=== PATIENT | female | born 1965 | race Caucasian/White ===

== ENCOUNTER 2018-03-14 09:39 | Inpatient (IN) ==
[2018-03-14] MEDS ORDERED: Isovue-370 500 ML INFUS..BTL IV ONE (09:59)
--- NOTE | 2018-03-14 10:30 | Emergency Department Note ---
Disposition Clinical Impression: Pneumonia, Mass of right lung Disposition: Admitted As Inpatient Condition: Fair General Adult HPI - General Chief complaint: ED Shortness of Breath/Dyspnea Stated complaint: "coughing up blood" Time Seen by Provider: 03/14/18 09:49 Source: patient Limitations: no limitations Nursing Notes Reviewed: Yes Vital Signs Reviewed: Yes - History of Present Illness HPI Narrative: 53 year old female with a history of lung cancer, partial lung removed and COPD presents with hemoptysis. Pt stated that she started to cough up bright red blood since yesterday. Around 4 times per hour. Associate with mild shortness of breath. No chest pain. No chill and fever. The symptoms were getting a little bit better today. Patient visited her pulmonology this morning. she was suggested to come to ER for further evaluation. Pt also mention some weight loss since December this year. Pt's last time chest CT was on December this year. Pt follows up with Oncology Dr. Muriel Jimenez and Pulmonology Dr. Atkins. Onset (ago): day(s) (1) Location: other (lungs) Radiation: non-radiation Pain Scale: 0 Consistency: intermittent Improves with: nothing Worsens with: nothing - Related Data Home Medications Medication Instructions Recorded Confirmed Gabapentin [Neurontin] 300 mg PO TID PRN 11/25/15 03/14/18 Cholecalciferol (D-3) [Vitamin D] 1,000 unit PO DAILY 06/02/16 03/14/18 Ibuprofen [Motrin] 200 mg PO Q6HR PRN 06/02/16 03/14/18 Oxygen 2 l .ROUTE AD PRN 06/02/16 03/14/18 Calcium Carbonate/Vitamin D3 1 each PO DAILY 12/26/17 03/14/18 [Calcium 600 + Vit D Tablet] Fluticasone/Vilanterol [Breo 1 each IH DAILY 12/26/17 03/14/18 Ellipta 100-25 Mcg INH] Loratadine/Pseudoephedrine 1 each PO BID 02/07/18 03/14/18 [Allergy-Congestion Rlf-D 12Hr] Meloxicam [Mobic] 15 mg PO DAILY 02/07/18 03/14/18 Citalopram Hydrobromide 10 mg PO DAILY 03/14/18 03/14/18 [Citalopram HBr] clonazePAM [Klonopin] 0.5 mg PO BID 03/14/18 03/14/18 Previous Rx's Medication Instructions Recorded Albuterol Sulfate [Albuterol 1 puff IH Q6HR PRN #1 inhaler 03/05/16 Inhaler] Allergies Allergy/AdvReac Type Severity Reaction Status Date / Time adhesive tape Allergy Hives Verified 02/07/18 14:04 metronidazole [From Flagyl] AdvReac Gastrointestinal Verified 02/07/18 14:04 Upset steriods Allergy Fainting Uncoded 02/07/18 14:04 Constitutional: Denies: fever, chills, weakness, weight change Eyes: Denies: eye pain, eye discharge, vision change ENT ED: Denies: ear pain, throat pain, dental pain, hearing loss, epistaxis, congestion, dysphagia Cardiovascular: Denies: chest pain, palpitations, dyspnea on exertion, edema, syncope Respiratory: Reports: hemoptysis. Denies: cough, dyspnea, wheezes, stridor Gastrointestinal: Denies: abdominal pain, nausea, vomiting, diarrhea, constipation, hematemesis, melena, hematochezia Genitourinary: Denies: dysuria, frequency, hematuria, discharge Musculoskeletal: Denies: back pain, neck pain, arthralgia, myalgia Integumentary: Denies: rash, abrasion, lesions Neurological: Denies: headache, weakness, numbness, paresthesias, confusion, abnormal gait, vertigo Psychiatric: Denies: anxiety, depression, suicidal thoughts, homicidal thoughts , auditory hallucinations, visual hallucinations Endocrine: Denies: fatigue Hematological/Lymphatic: Denies: easy bleeding, easy bruising Allergic/Immunologic: Denies: facial swelling, urticaria Past Medical History - Past Medical History Medical history: Reports: cancer, COPD Surgical history: Reports: hysterectomy Psychiatric history: Reports: anxiety - Social History Smoking Status: Current every day smoker Smokeless Tobacco Status: No Alcohol use: Reports: none Drug use: Reports: none Physical Exam - General Limitations: no limitations General appearance: alert, in no apparent distress - Head Head exam: atraumatic, normocephalic, normal inspection - Eye Eye exam: Present: normal appearance, PERRL, EOMI - ENT ENT exam: normal exam, normal oropharynx, mucous membranes moist - Expanded ENT Exam External ear exam: Present: normal external inspection Mouth exam: Present: normal external inspection Teeth exam: Present: normal inspection Throat exam: Present: normal inspection - Neck Neck exam: Present: normal inspection, full ROM, trachea midline - Chest Chest inspection: Present: normal inspection, symmetric chest wall rise - Respiratory Respiratory exam: Present: normal lung sounds bilaterally - Cardiovascular Cardiovascular exam: Present: regular rate, normal rhythm, normal heart sounds - Abdominal Exam Abdominal exam: Present: soft, Non-Tender. Absent: tenderness, distention, guarding, rebound, rigidity - Extremities Exam Extremities exam: Present: normal inspection, full ROM. Absent: tenderness, pedal edema - Expanded Upper Extremity Exam Shoulder exam: Present: normal inspection, full ROM Arm exam: Present: normal inspection, full ROM Elbow exam: Present: normal inspection, full ROM Forearm/Wrist exam: Present: normal inspection, full ROM Hand exam: Present: normal inspection, full ROM Vascular exam: Normal: capillary refill, radial pulse - Expanded Lower Extremity Exam Hip/Pelvis exam: Present: normal inspection, full ROM Upper leg exam: Present: normal inspection, full ROM Knee exam: Present: normal inspection, full ROM Lower leg exam: Present: normal inspection, full ROM Ankle exam: Present: normal inspection, full ROM Foot/toe exam: Present: normal inspection, full ROM Neurovascular/Tendon exam: Absent: motor deficit, sensory deficit, tendon deficit - Back Exam Back exam: Present: normal inspection, full ROM. Absent: tenderness - Neurological Exam Neurological exam: Present: alert, oriented X3 - Expanded Neurological Exam Patient oriented to: Present: person, place, time Coma Scale Eye Opening: Spontaneous Coma Scale Motor Response: Obeys Commands Coma Scale Verbal Response: Oriented Coma Scale Total: 15 - Psychiatric Psychiatric exam: Present: normal affect, normal mood - Skin Skin exam: Present: warm, dry, intact, normal color Course Vital Signs Temperature 97.6 F 03/14/18 09:42 Pulse Rate 83 03/14/18 09:42 Respiratory Rate 18 03/14/18 09:42 Blood Pressure 117/81 03/14/18 09:42 O2 Sat by Pulse Oximetry 96 03/14/18 09:42 Temperature 97.9 F 03/15/18 07:19 Pulse Rate 71 03/15/18 07:19 Respiratory Rate 17 03/15/18 07:19 Blood Pressure 102/67 03/15/18 07:19 O2 Sat by Pulse Oximetry 98 03/15/18 07:19 Oxygen Delivery Oxygen Delivery Nasal Cannula Medical Decision Making - MDM Narrative Medical decision making narrative: 53-year-old female with history of lung cancer and COPD presents with hemoptysis. Patient reported a cough of multiple times since yesterday. Associated with mild shortness of breath. Patient visited her pulmonology this morning, she was suggested to come to ER. Patient mentioned weight loss since December. Patient denied productive cough, chills and fever. 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 Unremarkable physical exam. Labs: normal hemoglobin. Chest CT: Progressive consolidation of right upper lung, suspicious pneumonia or TB. Dr. Meek saw the patient as well, start Droplet precaution and negative room air immediately, Dr. Atkins consulted suggested start IV antibiotics Rocephine and Azithromycin, sputum culture for TB, hold TB treatment until labs confirmed , he will see the patient in the floor. 01:30 pm, paged hospitalist for admission. 2;30pm, spoke with hospitalist in ER, will admit pt to hospital. - Lab Data Lab results reviewed: Yes I reviewed the patient's lab results. Result diagrams: 03/15/18 01:07 03/15/18 01:07 Lab Results 03/14/18 03/14/18 Range/Units 10:11 10:11 WBC 6.9 (4.3-11.1) K/mcL RBC 3.83 (3.82-4.97) M/mcL Hgb 12.4 (11.5-15.4) g/dL Hct 36.9 (35.3-44.9) % MCV 96.3 (83.0-100.0) fL MCH 32.4 (28.0-33.3) pg MCHC 33.6 (31.6-35.5) g/dL RDW 12.4 (11.5-14.5) % Plt Count 423 H (140-400) K/mcL MPV 9.2 L (9.4-12.4) fL Immature Gran % 0.1 (0-4) % Seg Neutrophils % 60.0 % Lymphocytes % 29.5 % Monocytes % 8.9 % Eosinophils % 0.9 % Basophils % 0.6 % Neutrophils # 4.1 (1.6-8.9) K/mcL Lymphocytes # 2.0 (0.6-4.6) K/mcL Monocytes # 0.6 (0.0-1.3) K/mcL Eosinophils # 0.1 (0.0-0.6) K/mcL Basophils # 0.0 (0.0-0.2) K/mcL Nucleated RBCs/100 WBC 0.3 H (0) /100 WBC Sodium 140 (136-145) mEq/L Potassium 4.0 (3.5-5.1) mEq/L Chloride 103 (98-107) mEq/L Carbon Dioxide 26 (23-29) mEq/L BUN 11 (6-20) mg/dL Creatinine 0.66 (0.60-1.20) mg/dL Est GFR ( Amer) > 60 (> 60) Est GFR (Non-Af Amer) > 60 (> 60) BUN/Creatinine Ratio 17 (6-26) Glucose 97 (70-105) mg/dL Calculated Osmolality 289 (280-300) Calcium 10.1 (8.6-10.3) mg/dL Total Bilirubin 0.3 (0.3-1.0) mg/dL AST 13 (13-39) Units/L ALT 9 (7-52) Units/L Alkaline Phosphatase 81 (34-104) Units/L Serum Total Protein 7.3 (6.4-8.9) g/dL Albumin 4.1 (3.5-5.7) g/dL Globulin 3.2 (2.4-3.5) g/dL Albumin/Globulin Ratio 1.3 (1.1-2.2) - Radiology Data Radiology results reviewed: Yes I reviewed the patient's radiology results. ECHNIQUE: CT of the chest was performed with the administration of intravenous contrast. Multiplanar reformatted images are provided for review. Dose modulation, iterative reconstruction, and/or weight based adjustment of the mA/kV was utilized to reduce the radiation dose to as low as reasonably achievable. COMPARISON: Multiple prior exams, most recently PA chest CT from 01/09/2018 HISTORY: ORDERING SYSTEM PROVIDED HISTORY: hemoptysis, history of lung cancer 75 ml of [id number] FINDINGS: Mediastinum: No enlarged lymph nodes. Right hilar surgical clips. Normal caliber great vessels. Normal heart size with mild RCA territory coronary calcifications. No pericardial effusion. Unremarkable esophagus. Lungs/pleura: Postsurgical changes right upper and middle lobectomies. Architectural distortion at the right lung apex with progressive consolidation and cavitary appearing areas largest, a bilobed appearing area best appreciated on coronal image 90 measuring 4.4 x 1.3 cm and coronal plane. Mild diffuse bronchial wall thickening. Unchanged background of centrilobular and paraseptal emphysema. Mild reticular versus ground-glass abnormality along the posterior right costophrenic sulcus. Small amount of left basilar atelectasis. Upper Abdomen: Unremarkable. Soft Tissues/Bones: No enlarged axillary or supraclavicular lymph nodes. Normal thyroid. CT/CT chest w con IMPRESSION: Postsurgical changes of prior right upper and middle lobectomies. Progressive consolidation at the right lung apex, with questionable areas of cavitation and/or cicatricial bronchiectasis. Together, these findings are suspicious for superimposed infectious process such as pneumonia. TB should also be considered until excluded. Residual malignancy/disease recurrence cannot be excluded. Recommend follow-up contrast-enhanced CT chest in 8-12 weeks. Moderate centrilobular and paraseptal emphysema. Critical results were called by Dr. Matt King to Sam Hightower NP on 03/14/2018 at 13:13. D/ / Matt King / Matt King Attestation Statement - Attestation Attestation: John, Rohan Meek DO have provided [id number] time during the care of this patient. Detailed review the presentation, symptoms, medical history were discussed and reviewed with the mid-level provider Sam Hightower PA-C/MARKETING COMMUNICATIONS MANAGER. Medical intervention labs and imaging studies were reviewed in detail. See full documentation of physical exam and course of care in the mid-level provider's note. I agree with the determined course of care, medical intervention and disposition put forth by the mid-level provider. See below documentation for changes or alterations in documentation.
[2018-03-14 10:43] LABS: Basophils % 0.6 %; Eosinophils # 0.1 K/mcL (0.0-0.6); Eosinophils % 0.9 %; Hematocrit 36.9 % (35.3-44.9); Hemoglobin 12.4 g/dL (11.5-15.4); Immature Granulocytes % 0.1 % (0-4); Lymphocytes % 29.5 %; Mean Corpuscular HGB Conc 33.6 g/dL (31.6-35.5); Mean Corpuscular Hemoglobin 32.4 pg (28.0-33.3); Mean Corpuscular Volume 96.3 fL (83.0-100.0); Mean Platelet Volume 9.2 fL (9.4-12.4); Monocytes # 0.6 K/mcL (0.0-1.3); Monocytes % 8.9 %; Neutrophils # 4.1 K/mcL (1.6-8.9); Nucleated Red Blood Cells 0.3 /100 WBC (0); Platelet Count 423 K/mcL (140-400); Red Blood Count 3.83 M/mcL (3.82-4.97); Red Cell Distribution Width 12.4 % (11.5-14.5)
[2018-03-14 11:34] LABS: Alanine Aminotransferase 9 Units/L (7-52); Albumin 4.1 g/dL (3.5-5.7); Albumin/Globulin Ratio 1.3 (1.1-2.2); Alkaline Phosphatase 81 Units/L (34-104); Aspartate Amino Transferase 13 Units/L (13-39); BUN/Creatinine Ratio 17 (6-26); Bilirubin,Total 0.3 mg/dL (0.3-1.0); Blood Urea Nitrogen 11 mg/dL (6-20); Calcium 10.1 mg/dL (8.6-10.3); Carbon Dioxide 26 mEq/L (23-29); Chloride 103 mEq/L (98-107); Globulin 3.2 g/dL (2.4-3.5); Glucose 97 mg/dL (70-105); Osmolality,Calculated 289 (280-300); Sodium 140 mEq/L (136-145); Total Protein 7.3 g/dL (6.4-8.9); eGFR For African Americans > 60 (> 60); eGFR For Non-African Americans > 60 (> 60)
[2018-03-14] MEDS ORDERED: cefTRIAXone 2,000 MG in 0.9 % Sodium Chloride Mini Bag 100 ML IVPB ONE (13:25)
[2018-03-14] MEDS ORDERED: Azithromycin 500 MG in D5% in Water 250 ML IVPB ONE (13:25)
--- NOTE | 2018-03-14 13:36 | Emergency Department Note ---
Disposition Clinical Impression: Pneumonia, Mass of right lung Disposition: Admitted As Inpatient Condition: Fair Time of Disposition: 15:24 General Adult HPI - General Chief complaint: ED Shortness of Breath/Dyspnea Stated complaint: "coughing up blood" Time Seen by Provider: 03/14/18 09:49 Source: patient Limitations: no limitations - History of Present Illness Location: other (lungs) Pain Scale: 0 Improves with: nothing Worsens with: nothing - Related Data Home Medications Medication Instructions Recorded Confirmed Gabapentin [Neurontin] 300 mg PO TID PRN 11/25/15 03/14/18 Cholecalciferol (D-3) [Vitamin D] 1,000 unit PO DAILY 06/02/16 03/14/18 Ibuprofen [Motrin] 200 mg PO Q6HR PRN 06/02/16 03/14/18 Oxygen 2 l .ROUTE AD PRN 06/02/16 03/14/18 Calcium Carbonate/Vitamin D3 1 each PO DAILY 12/26/17 03/14/18 [Calcium 600 + Vit D Tablet] Fluticasone/Vilanterol [Breo 1 each IH DAILY 12/26/17 03/14/18 Ellipta 100-25 Mcg INH] Loratadine/Pseudoephedrine 1 each PO BID 02/07/18 03/14/18 [Allergy-Congestion Rlf-D 12Hr] Meloxicam [Mobic] 15 mg PO DAILY 02/07/18 03/14/18 Citalopram Hydrobromide 10 mg PO DAILY 03/14/18 03/14/18 [Citalopram HBr] clonazePAM [Klonopin] 0.5 mg PO BID 03/14/18 03/14/18 Previous Rx's Medication Instructions Recorded Albuterol Sulfate [Albuterol 1 puff IH Q6HR PRN #1 inhaler 03/05/16 Inhaler] Allergies Allergy/AdvReac Type Severity Reaction Status Date / Time adhesive tape Allergy Hives Verified 02/07/18 14:04 metronidazole [From Flagyl] AdvReac Gastrointestinal Verified 02/07/18 14:04 Upset steriods Allergy Fainting Uncoded 02/07/18 14:04 Constitutional: Denies: fever, chills, weakness, weight change Eyes: Denies: eye pain, eye discharge, vision change ENT ED: Denies: ear pain, throat pain, dental pain, hearing loss, epistaxis, congestion, dysphagia Cardiovascular: Denies: chest pain, palpitations, dyspnea on exertion, edema, syncope Respiratory: Reports: hemoptysis. Denies: cough, dyspnea, wheezes, stridor Gastrointestinal: Denies: abdominal pain, nausea, vomiting, diarrhea, constipation, hematemesis, melena, hematochezia Genitourinary: Denies: dysuria, frequency, hematuria, discharge Musculoskeletal: Denies: back pain, neck pain, arthralgia, myalgia Integumentary: Denies: rash, abrasion, lesions Neurological: Denies: headache, weakness, numbness, paresthesias, confusion, abnormal gait, vertigo Psychiatric: Denies: anxiety, depression, suicidal thoughts, homicidal thoughts , auditory hallucinations, visual hallucinations Endocrine: Denies: fatigue Hematological/Lymphatic: Denies: easy bleeding, easy bruising Allergic/Immunologic: Denies: facial swelling, urticaria Past Medical History - Past Medical History Medical history: Reports: cancer, COPD Surgical history: Reports: hysterectomy Psychiatric history: Reports: anxiety - Social History Smoking Status: Current every day smoker Smokeless Tobacco Status: No Alcohol use: Reports: none Drug use: Reports: none Physical Exam - General Limitations: no limitations General appearance: alert, in no apparent distress Course Vital Signs Temperature 97.6 F 03/14/18 09:42 Pulse Rate 83 03/14/18 09:42 Respiratory Rate 18 03/14/18 09:42 Blood Pressure 117/81 03/14/18 09:42 O2 Sat by Pulse Oximetry 96 03/14/18 09:42 Temperature 97.6 F 03/14/18 09:50 Pulse Rate 75 03/14/18 12:53 Respiratory Rate 16 03/14/18 12:53 Blood Pressure 125/85 03/14/18 12:53 O2 Sat by Pulse Oximetry 94 03/14/18 12:53 Oxygen Delivery Oxygen Delivery Nasal Cannula Medical Decision Making - Lab Data Result diagrams: 03/14/18 10:11 03/14/18 10:11 Lab Results 03/14/18 03/14/18 Range/Units 10:11 10:11 WBC 6.9 (4.3-11.1) K/mcL RBC 3.83 (3.82-4.97) M/mcL Hgb 12.4 (11.5-15.4) g/dL Hct 36.9 (35.3-44.9) % MCV 96.3 (83.0-100.0) fL MCH 32.4 (28.0-33.3) pg MCHC 33.6 (31.6-35.5) g/dL RDW 12.4 (11.5-14.5) % Plt Count 423 H (140-400) K/mcL MPV 9.2 L (9.4-12.4) fL Immature Gran % 0.1 (0-4) % Seg Neutrophils % 60.0 % Lymphocytes % 29.5 % Monocytes % 8.9 % Eosinophils % 0.9 % Basophils % 0.6 % Neutrophils # 4.1 (1.6-8.9) K/mcL Lymphocytes # 2.0 (0.6-4.6) K/mcL Monocytes # 0.6 (0.0-1.3) K/mcL Eosinophils # 0.1 (0.0-0.6) K/mcL Basophils # 0.0 (0.0-0.2) K/mcL Nucleated RBCs/100 WBC 0.3 H (0) /100 WBC Sodium 140 (136-145) mEq/L Potassium 4.0 (3.5-5.1) mEq/L Chloride 103 (98-107) mEq/L Carbon Dioxide 26 (23-29) mEq/L BUN 11 (6-20) mg/dL Creatinine 0.66 (0.60-1.20) mg/dL Est GFR ( Amer) > 60 (> 60) Est GFR (Non-Af Amer) > 60 (> 60) BUN/Creatinine Ratio 17 (6-26) Glucose 97 (70-105) mg/dL Calculated Osmolality 289 (280-300) Calcium 10.1 (8.6-10.3) mg/dL Total Bilirubin 0.3 (0.3-1.0) mg/dL AST 13 (13-39) Units/L ALT 9 (7-52) Units/L Alkaline Phosphatase 81 (34-104) Units/L Serum Total Protein 7.3 (6.4-8.9) g/dL Albumin 4.1 (3.5-5.7) g/dL Globulin 3.2 (2.4-3.5) g/dL Albumin/Globulin Ratio 1.3 (1.1-2.2) Attestation Statement - Attestation Attestation: I, Rohan Meek DO have provided [id number] time during the care of this patient. Detailed review the presentation, symptoms, medical history were discussed and reviewed with the mid-level provider Sam Hightower PA-C/RAILROAD TRACK MECHANIC. Medical intervention labs and imaging studies were reviewed in detail. See full documentation of physical exam and course of care in the mid-level provider's note. I agree with the determined course of care, medical intervention and disposition put forth by the mid-level provider. See below documentation for changes or alterations in documentation. 53-year-old female presents to the emergency room at the request of her theater projectionist. Patient was seen by the mid-level provider 3 hours and 30 minutes prior to my involvement in the case. Patient was sent because of hemoptysis. Patient had this going on and off for the last several days. She does have a history of cancer, lobectomy and treatment of the right upper lung. Patient denies any fevers or chills nausea vomiting or diarrhea. Denies any headache or vision change. She has had shortness of breath. She denies any chest pain. Laboratory workup is completed. No acute findings noted at that time. CT of the chest was ordered with IV contrast the patient is found to have what appears to be possible cavitary lesions in the upper aspect along with scarring and possible pneumonia. There was concern for possible tuberculosis versus empyema versus pneumonia. Because of this the patient be put in contact precautions up with negative pressure room at this time. The theater projectionist will be contacted for their recommendations patient will be admitted. Patient otherwise currently stable. Blood cultures will be added on at this point and fluids will be started. See detailed documentation of physical exam, medical intervention, medical decision-making and disposition the mid-level provider's note [id number] Patient is otherwise stable. Hospitalist as well as the theater projectionist were contacted. Recommendations of the mid-level provider's note. Patient will be admitted for definitive management. Antibiotics ordered at this time. No critical care provider the patient's treatment course
--- NOTE | 2018-03-14 14:41 | Pulmonology History & Physical ---
Date of Encounter: 03/14/18 Time of Encounter: 14:37 History of Present Illness Chief complaint: Hemoptysis Past Med Surg Social Fam HX - Past Medical History Medical history: cancer, COPD Psychiatric history: anxiety - Past Surgical History Surgical History: hysterectomy - Social History Smoking Status: Current every day smoker Smokeless Tobacco Status: No Alcohol use: none Drug use: none - Family History Mother Adopted: No Hx Family Neurologic Disorders: Yes (stroke) Medications and Allergies Gabapentin [Neurontin] 300 mg PO TID PRN 11/25/15 [History] Albuterol Sulfate [Albuterol Inhaler] 1 puff IH Q6HR PRN #1 inhaler 03/05/16 [Rx ] Cholecalciferol (D-3) [Vitamin D] 1,000 unit PO DAILY 06/02/16 [History] Ibuprofen [Motrin] 200 mg PO Q6HR PRN 06/02/16 [History] Oxygen 2 l .ROUTE AD PRN 06/02/16 [History] Calcium Carbonate/Vitamin D3 [Calcium 600 + Vit D Tablet] 1 each PO DAILY [History] Fluticasone/Vilanterol [Breo Ellipta 100-25 Mcg INH] 1 each IH DAILY 12/26/17 [ History] Loratadine/Pseudoephedrine [Allergy-Congestion Rlf-D 12Hr] 1 each PO BID [History] Meloxicam [Mobic] 15 mg PO DAILY 02/07/18 [History] Citalopram Hydrobromide [Citalopram HBr] 10 mg PO DAILY 03/14/18 [History] clonazePAM [Klonopin] 0.5 mg PO BID 03/14/18 [History] 3 Allergy/AdvReac Type Severity Reaction Status Date / Time adhesive tape Allergy Hives Verified 02/07/18 14:04 metronidazole [From Flagyl] AdvReac Gastrointestinal Verified 02/07/18 14:04 Upset steriods Allergy Fainting Uncoded 02/07/18 14:04 All Systems: The remainder of the systems were reviewed and are negative Physical Examination Vital Signs: Vital Signs, Last 4 Hours Pulse Resp BP Pulse Ox 03/14/18 12:53 75 16 125/85 94 03/14/18 11:11 82 18 125/82 94 Results - Laboratory Findings CBC and BMP: 03/14/18 10:11 03/14/18 10:11 Abnormal lab findings: Abnormal lab results Plt Count 423 K/mcL (140-400) H 03/14/18 10:11 MPV 9.2 fL (9.4-12.4) L 03/14/18 10:11 Nucleated RBCs/100 WBC 0.3 /100 WBC (0) H 03/14/18 10:11
--- NOTE | 2018-03-14 14:59 | Pulmonology Consult Note ---
<Cecy Kerns - Last Filed: 03/14/18 15:46> Date of Encounter: 03/14/18 Time of Encounter: 14:35 Assessment and Plan (1) Hemoptysis Current Visit: Yes Status: Acute Mild hemoptysis with differential of malignancy, TB, aspergillosis, bronchiectasis. Mild hemoptysis since yesterday, 4x per day but decreased today. Admitted night sweats for 2 weeks, cough, headache. PMH of non-small cell lung cancer with right upper and lower lobectomies in 2013 , COPD WBC and Hgb WNL, afebrile CT chest demonstrating progressive consolidation of right lung with apex cavitation and or cictricial bronchiectasis. Suspicious for superimposed infection such as pneumonia and TB. Moderate centrilobular and paraseptal emphysema. No recent travel, TB exposure Plan -consult infectious disease due to concern for possible TB. Per infectious disease no antibiotics since the patient has a normal WBC and not septic -AFB sputum x3 q8h -AFB culture pending -sputum culture pending -airborne precautions -PPD test pending (2) Mass of right lung Current Visit: Yes Status: Acute Concern for malignancy. Has a history of non-small cell lung cancer in her right lung with right upper and lower lobectomies CT chest demonstrating progressive consolidation of right lung with apex cavitation and or cictricial bronchiectasis. Suspicious for superimposed infection such as pneumonia and TB. Moderate centrilobular and paraseptal emphysema. Bronchoscopy 05/2016: negative for malignant cells Plan -will go forward with bronchoscopy after 2 consecutive negative AFB -AFB pending (3) COPD (chronic obstructive pulmonary disease) Current Visit: Yes Status: Acute History of known COPD controlled with Breo and albuterol. She is a patient of Dr. Atkins of pulmonology. This is unlikely to be exacerbation right now. -Continue Symbicort -continue albuterol Qualifiers: Qualified Code(s): J44.9 - Chronic obstructive pulmonary disease, unspecified (4) Non-small cell cancer of right lung Current Visit: No Status: Resolved non-small cell lung cancer with right upper and lower lobectomies in 2013 (5) Tobacco abuse Current Visit: Yes Status: Acute The patient has been smoking since she was 12 years old and currently smokes 1/ 2 ppd. (6) Tobacco abuse counseling Current Visit: Yes Status: Acute The patient was counseled on smoking cessation and stated in understanding however, she declined at this time. History of Present Illness Consult date: 03/14/18 Requesting physician: Sam Hightower Reason for consult: other (Hemoptysis) Chief complaint: Hemoptysis History of present illness: 53yo female PMH lung cancer 14 years ago with right upper and lower lobe lobectomies, COPD who presented to [facility] complaining of hemoptysis since yesterday. She was seen in her atm technician office today and was immediately recommended to get the ED. She reported the hemoptysis yesterday was 4 times an hour and today it has decreased in frequency. She also had shortness of breath yesterday requiring her AZALEA inhaler and cough. She has had a "cold" for 2 weeks with runny nose, headache, night sweats. She is also noted 40 pound weight loss in the past 2.5 years. She denies fever, chills, chest pain, abdominal pain, nausea, hematemesis, melena, hematechezia. She denies recent travel, TB exposure, hospitalizations. She admits to smoking since 13 years old and currently smokes 1/2 ppd. She is a full code. Past Med Surg Social Fam HX - Past Medical History Medical history: cancer, COPD Psychiatric history: anxiety - Past Surgical History Surgical History: hysterectomy - Social History Smoking Status: Current every day smoker Smokeless Tobacco Status: No Alcohol use: none Drug use: none - Family History Mother Adopted: No Hx Family Neurologic Disorders: Yes (stroke) Medications and Allergies Gabapentin [Neurontin] 300 mg PO TID PRN 11/25/15 [History] Albuterol Sulfate [Albuterol Inhaler] 1 puff IH Q6HR PRN #1 inhaler 03/05/16 [Rx ] Cholecalciferol (D-3) [Vitamin D] 1,000 unit PO DAILY 06/02/16 [History] Ibuprofen [Motrin] 200 mg PO Q6HR PRN 06/02/16 [History] Oxygen 2 l .ROUTE AD PRN 06/02/16 [History] Calcium Carbonate/Vitamin D3 [Calcium 600 + Vit D Tablet] 1 each PO DAILY [History] Fluticasone/Vilanterol [Breo Ellipta 100-25 Mcg INH] 1 each IH DAILY 12/26/17 [ History] Loratadine/Pseudoephedrine [Allergy-Congestion Rlf-D 12Hr] 1 each PO BID [History] Meloxicam [Mobic] 15 mg PO DAILY 02/07/18 [History] Citalopram Hydrobromide [Citalopram HBr] 10 mg PO DAILY 03/14/18 [History] clonazePAM [Klonopin] 0.5 mg PO BID 03/14/18 [History] 3 Allergy/AdvReac Type Severity Reaction Status Date / Time adhesive tape Allergy Hives Verified 02/07/18 14:04 metronidazole [From Flagyl] AdvReac Gastrointestinal Verified 02/07/18 14:04 Upset steriods Allergy Fainting Uncoded 02/07/18 14:04 All Systems: The remainder of the systems were reviewed and are negative - Constitutional Constitutional: weight loss (40 pounds in 2.5 years), no chills, no fever(s) - EENT Eyes: no loss of vision Nose, mouth and throat: headache(s), nasal discharge, no epistaxis, no sore throat - Cardiovascular Cardiovascular: no chest pain, no diaphoresis, no edema, no palpitations, no syncope - Respiratory Respiratory: cough, dyspnea, hemoptysis - Gastrointestinal Gastrointestinal: no abdominal pain, no diarrhea, no hematemesis, no hematochezia, no melena, no nausea - Musculoskeletal Musculoskeletal: myalgias - Integumentary Integumentary: no erythema - Endocrine Endocrine: cold intolerance Physical Examination Vital Signs: Vital Signs, Last 4 Hours Pulse Resp BP Pulse Ox 03/14/18 12:53 75 16 125/85 94 03/14/18 11:11 82 18 125/82 94 General appearance: no acute distress, alert Eyes: nonicteric ENT: oropharynx moist Mallampati (class): 1 Neck: supple Effort: normal Inspection: normal Auscultation: bilateral: other (Crackles left lower lobe) Percussion: right: dull, bilateral: not dull Tactile fremitus: right: diminished, bilateral: normal Cardiovascular: regular rate and rhythm Gastrointestinal: normoactive bowel sounds, soft, non-tender Integumentary: normal Musculoskeletal: no deformities normal mental status, non-focal exam mood appropriate, affect normal Results - Laboratory Findings CBC and BMP: 03/14/18 10:11 03/14/18 10:11 Abnormal lab findings: Abnormal lab results Plt Count 423 K/mcL (140-400) H 03/14/18 10:11 MPV 9.2 fL (9.4-12.4) L 03/14/18 10:11 Nucleated RBCs/100 WBC 0.3 /100 WBC (0) H 03/14/18 10:11 - Clinical Findings Intake & Output: Intake & Output 03/13/18 03/14/18 03/14/18 23:59 07:59 15:59 Intake Total 100 / 100 Balance 100 / 100 Weight 59.874 kg Consult Discharge Plan - Plan Referrals: Herlinda Espinal MD [Primary Care Provider] - <Lilia Atkins - Last Filed: 03/14/18 16:38> Date of Encounter: 03/14/18 All Systems: The remainder of the systems were reviewed and are negative Physical Examination Vital Signs: Vital Signs, Last 4 Hours Temp Pulse Resp BP Pulse Ox 03/14/18 16:19 98.0 F 70 19 107/73 97 03/14/18 15:58 16 129/82 Results - Laboratory Findings CBC and BMP: 03/14/18 10:11 03/14/18 10:11 Abnormal lab findings: Abnormal lab results Plt Count 423 K/mcL (140-400) H 03/14/18 10:11 MPV 9.2 fL (9.4-12.4) L 03/14/18 10:11 Nucleated RBCs/100 WBC 0.3 /100 WBC (0) H 03/14/18 10:11 - Clinical Findings Intake & Output: Intake & Output 03/14/18 03/14/18 03/14/18 07:59 15:59 23:59 Intake Total 0 / 0 Output Total 0 / 0 Balance 0 / 0 Weight 59.879 kg - Attending Attestation I examined this patient and my medical decision-making was reviewed with the Resident Physician. I agree with the documented findings, disposition and treatment plan as described except to the extent set forth below. Patient seen and examined. Labs, radiology, chart personally reviewed. 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 Patient has only mild hemoptysis and TB needs to be ruled out before any invasive procedure such as bronchoscopy and sputum AFB smear to be done and if at least 2 negative and continue to have hemoptysis then we will plan for bronchoscopy. I have explained this to the patient and she understand that. I have also reviewed CT chest personally with the resident. Cardiovascular: stable GI: Nutrition per dietary and GI prophylaxis per routine Heme: DVT prophylaxis per routine ID: Infectious disease consultation. Thank you for consultation we will continue follow-up.
[2018-03-14] MEDS ORDERED: Tuberculin Skin Test (PPD) 5 TUB/0.1 ML VIAL ID ONE (15:47)
--- NOTE | 2018-03-14 15:58 | Internal Med History&Physical ---
Date of Encounter: 03/14/18 Time of Encounter: 03:00 Internal Medicine - H&P: HPI Chief complaint: hemoptysis Plans for Post Hospital Care: Transfer Inp Rehab Fac History of present illness: Ms. White is a 53 year old female with PMH lung cancer 14 years ago s/p right upper and lower lobe lobectomies, COPD who presented to [facility] complaining of similar episodes of hemoptysis associated with shortness of breath and cough and was advised by her mechanic field service to immediately seek medical attention at ED. She also c/ 2 weeks history of runny nose, headache and night sweats. She denies recent travel, TB exposure, hospitalizations. She admits to smoking since 13 years old and currently smokes 1/2 ppd. she was evaluated by the ER staff and her labs were unremarkable, however Chest CT revealed Progressive consolidation of right upper lung, suspicious pneumonia or TB. Dr. Atkins consulted suggested start IV antibiotics Rocephine and Azithromycin, sputum culture for TB, hold TB treatment until labs confirmed. The patient was admitted for further evaluation and management Past Med Surg Social Fam HX - Past Medical History Medical history: cancer, COPD Psychiatric history: anxiety - Past Surgical History Surgical History: hysterectomy - Social History Smoking Status: Current every day smoker Smokeless Tobacco Status: No Alcohol use: none Drug use: none - Family History Mother Adopted: No Hx Family Neurologic Disorders: Yes (stroke) Internal Medicine - H&P: Meds Gabapentin [Neurontin] 300 mg PO TID PRN 11/25/15 [History] Albuterol Sulfate [Albuterol Inhaler] 1 puff IH Q6HR PRN #1 inhaler 03/05/16 [Rx ] Cholecalciferol (D-3) [Vitamin D] 1,000 unit PO DAILY 06/02/16 [History] Ibuprofen [Motrin] 200 mg PO Q6HR PRN 06/02/16 [History] Oxygen 2 l .ROUTE AD PRN 06/02/16 [History] Calcium Carbonate/Vitamin D3 [Calcium 600 + Vit D Tablet] 1 each PO DAILY [History] Fluticasone/Vilanterol [Breo Ellipta 100-25 Mcg INH] 1 each IH DAILY 12/26/17 [ History] Loratadine/Pseudoephedrine [Allergy-Congestion Rlf-D 12Hr] 1 each PO BID [History] Meloxicam [Mobic] 15 mg PO DAILY 02/07/18 [History] Citalopram Hydrobromide [Citalopram HBr] 10 mg PO DAILY 03/14/18 [History] clonazePAM [Klonopin] 0.5 mg PO BID 03/14/18 [History] 3 Allergy/AdvReac Type Severity Reaction Status Date / Time adhesive tape Allergy Hives Verified 02/07/18 14:04 metronidazole [From Flagyl] AdvReac Gastrointestinal Verified 02/07/18 14:04 Upset steriods Allergy Fainting Uncoded 02/07/18 14:04 All Systems PM: A 10-system review of systems was performed and is negative for pertinent findings except as documented above in the HPI. - Constitutional Constitutional: anorexia, fatigue, malaise, night sweats, weight loss, no chills , no fever(s) - Cardiovascular Cardiovascular ROS IM: dyspnea, no chest pain, no diaphoresis, no lightheadedness, no palpitations, no syncope - Respiratory Respiratory: cough, dyspnea, hemoptysis, wheezing, no excessive phlegm production - Gastrointestinal Gastrointestinal: no abdominal pain, no diarrhea, no hematemesis, no hematochezia, no melena, no nausea, no vomiting - Neurological Neurological ROS: no confusion, no convulsions, no focal weakness, no numbness, no tingling, no tremor(s) - Constitutional Vitals: Temp Pulse Resp BP Pulse Ox 97.6 F 75 16 125/85 94 03/14/18 09:50 03/14/18 12:53 03/14/18 12:53 03/14/18 12:53 03/14/18 12:53 General appearance: Present: A&O X 3 - Head Head exam: Present: atraumatic, normocephalic - Eye Eye exam: Present: PERRL, conjuntiva pink, sclera anicteric Pupils: Present: PERRL - Neck Neck exam general surgery: Present: supple, trachea midline. Absent: lymphadenopathy - Respiratory Respiratory exam: Present: rhonchi, wheezes. Absent: accessory muscle use, rales - Cardiovascular Cardiovascular exam: Present: RRR, +S1, +S2. Absent: diastolic murmur, gallop, rubs, systolic murmur - GI/Abdominal GI/Abdominal exam: Present: normal bowel sounds, soft, no peritoneal signs. Absent: distended, tenderness - Extremities Exam Extremities exam: Present: warm, radial pulses palpable and symmetrical. Absent : calf tenderness, cyanotic, pedal edema Internal Med - H&P Results - Labs CBC & Chem 7: 03/17/18 03:54 03/17/18 03:54 - Assessment and plan (1) Pneumonia Status: Deleted Assessment and plan: SOB DD *Pneumonia, ?? TB -AFB sputum x3 q8h -AFB culture pending -sputum culture pending -airborne precautions - Blood Cx - Urine Legionella antigen - Antibiotics - CBCD, CMP in AM - Tylenol 650 mg PO q 4-6 hr PRN pain or fever - Home meds - check the list and restart accordingly - Heparin 5000 U SQ BID Qualifiers: Pneumonia type: due to unspecified organism Laterality: unspecified laterality Lung location: unspecified part of lung Qualified Code(s): J18.9 - Pneumonia, unspecified organism (2) Mass of right lung Status: Acute Assessment and plan: the patient has history of lung cancer 14 years ago, report night sweats , hemoptysis and cough as well as weight loss, TB workup is pending, pulmonary was consulted (3) COPD (chronic obstructive pulmonary disease) Status: Acute Assessment and plan: we will continue home medication and start DuoNeb, the patient is still smoking and was counseled about smoking cessation . Qualifiers: COPD type: unspecified COPD Qualified Code(s): J44.9 - Chronic obstructive pulmonary disease, unspecified (4) Hemoptysis Status: Acute (5) Tobacco abuse counseling Status: Acute (6) DVT prophylaxis Status: Acute Assessment and plan: we will discharge the patient SCDs, we will hold on pharmacological anticoagulation for now given hemoptysis - Time Spent With Patient Total time spent is greater than 50% in coordination of care (as documented) at patient's floor/unit and/or counseling patient:
[2018-03-14] MEDS ORDERED: Gabapentin 300 MG CAPSULE PO PRN (18:13)
[2018-03-14] MEDS ORDERED: Acetaminophen 325 MG TABLET PO PRN (18:15)
[2018-03-14] MEDS ORDERED: Naloxone 0.4 MG/ML INJ IVP PRN (18:15)
[2018-03-14 19:32] LABS: Influenza A PCR Negative (Negative); Influenza B PCR Negative (Negative); Resp. Syncytial Virus PCR Negative (Negative)
[2018-03-14] MEDS: clonazePAM 0.5 MG TABLET PO SCH (20:25)
[2018-03-14] MEDS: Loratadine/Pseudophed (12 HR) 1 EACH TABLET PO SCH (20:25)
[2018-03-14] MEDS: 0.9 % Sodium Chloride 1,000 ML IVC SCH (20:26)
[2018-03-15 00:26] LABS: Bilirubin,Urine Negative (Negative); Blood,Urine Negative (Negative); Clarity,Urine Clear (Clear); Color,Urine Yellow (Yellow); Glucose,Urine (UA) Normal (Normal); Ketones,Urine Negative (Negative); Leukocyte Esterase,Urine Negative (Negative); Nitrite,Urine Negative (Negative); Protein,Urine Negative (Neg-Trace); Specific Gravity,Urine 1.023 (1.010-1.025); Urobilinogen,Urine Normal (Normal)
[2018-03-15 01:59] LABS: Alanine Aminotransferase 8 Units/L (7-52); Albumin 3.7 g/dL (3.5-5.7); Albumin/Globulin Ratio 1.3 (1.1-2.2); Alkaline Phosphatase 74 Units/L (34-104); Aspartate Amino Transferase 12 Units/L (13-39); BUN/Creatinine Ratio 19 (6-26); Bilirubin,Total 0.2 mg/dL (0.3-1.0); Blood Urea Nitrogen 12 mg/dL (6-20); Calcium 9.3 mg/dL (8.6-10.3); Carbon Dioxide 28 mEq/L (23-29); Chloride 105 mEq/L (98-107); Chol/HDL Ratio 3.7 (0-4.9); Cholesterol 174 mg/dL (< 200); Globulin 2.9 g/dL (2.4-3.5); Glucose 87 mg/dL (70-105); HDL Cholesterol 47 mg/dL (40-59); LDL Cholesterol,Calculated 110 mg/dL (0-99); Magnesium 2.2 mg/dL (1.6-2.6); Osmolality,Calculated 289 (280-300); Phosphorous 4.7 mg/dL (2.7-4.5); Sodium 140 mEq/L (136-145); Total Protein 6.6 g/dL (6.4-8.9); Triglycerides 84 mg/dL (< 150); eGFR For African Americans > 60 (> 60); eGFR For Non-African Americans > 60 (> 60)
[2018-03-15 02:21] LABS: INR 1.1; Prothrombin Time 11.6 Seconds (9.4-12.1)
[2018-03-15 02:36] LABS: Basophils # 0.1 K/mcL (0.0-0.2); Basophils % 0.9 %; Eosinophils # 0.1 K/mcL (0.0-0.6); Eosinophils % 1.5 %; Hematocrit 36.6 % (35.3-44.9); Immature Granulocytes % 0.3 % (0-4); Lymphocytes # 2.5 K/mcL (0.6-4.6); Lymphocytes % 37.5 %; Mean Corpuscular HGB Conc 32.8 g/dL (31.6-35.5); Mean Corpuscular Hemoglobin 31.8 pg (28.0-33.3); Mean Corpuscular Volume 97.1 fL (83.0-100.0); Mean Platelet Volume 9.4 fL (9.4-12.4); Monocytes # 0.6 K/mcL (0.0-1.3); Monocytes % 9.8 %; Neutrophils # 3.3 K/mcL (1.6-8.9); Platelet Count 438 K/mcL (140-400); Red Blood Count 3.77 M/mcL (3.82-4.97); Red Cell Distribution Width 12.5 % (11.5-14.5)
[2018-03-15] MEDS: 0.9 % Sodium Chloride 1,000 ML IVC SCH (06:33)
[2018-03-15] MEDS: Cholecalciferol (D-3) 1,000 UNIT TABLET PO SCH (08:03)
[2018-03-15] MEDS: Loratadine/Pseudophed (12 HR) 1 EACH TABLET PO SCH ×2 (08:03→21:25)
[2018-03-15] MEDS: clonazePAM 0.5 MG TABLET PO SCH ×2 (08:03→21:25)
[2018-03-15] MEDS ORDERED: Azithromycin 500 MG in D5% in Water 250 ML IVPB SCH ×2 (09:00→16:00)
[2018-03-15] MEDS ORDERED: (Fluticasone/Vilanterol [Breo Ellipta 100-25 Mcg Inh]) IH SCH (09:00)
[2018-03-15] MEDS ORDERED: cefTRIAXone 1,000 MG in Water for inj. (sterile) 20 ML 10 ML IVP SCH ×2 (09:00)
--- NOTE | 2018-03-15 09:03 | Pulmonology Progress Note ---
<Cecy Kerns - Last Filed: 03/15/18 10:36> Date of Encounter: 03/15/18 Time of Encounter: 09:02 Assessment and Plan (1) Hemoptysis Current Visit: Yes Status: Acute Mild hemoptysis with differential of malignancy, TB, aspergillosis, bronchiectasis. Mild hemoptysis since yesterday, 4x per day but decreased today. Admitted night sweats for 2 weeks, cough, headache. No recent travel, TB exposure PMH of non-small cell lung cancer with right upper and lower lobectomies in 2013 , COPD WBC and Hgb WNL, afebrile CT chest demonstrating progressive consolidation of right lung with apex cavitation and or cictricial bronchiectasis. Suspicious for superimposed infection such as pneumonia and TB. Moderate centrilobular and paraseptal emphysema. -she has had 2 episodes of hemoptysis today with teaspoon amount -sputum culture negative Plan -consult infectious disease due to concern for possible TB. Per infectious disease no antibiotics since the patient has a normal WBC and not septic -AFB sputum x3 q8h pending -AFB culture pending -airborne precautions -PPD test pending (2) Mass of right lung Current Visit: Yes Status: Acute Concern for malignancy. Has a history of non-small cell lung cancer in her right lung with right upper and lower lobectomies CT chest demonstrating progressive consolidation of right lung with apex cavitation and or cictricial bronchiectasis. Suspicious for superimposed infection such as pneumonia and TB. Moderate centrilobular and paraseptal emphysema. Bronchoscopy 05/2016: negative for malignant cells Plan -will go forward with bronchoscopy after 2 consecutive negative AFB -AFB pending, called lab and they stated that results should be available in 2 to 3 hours (3) COPD (chronic obstructive pulmonary disease) Current Visit: Yes Status: Acute History of known COPD controlled with Breo and albuterol. She is a patient of Dr. Atkins of pulmonology. This is unlikely to be exacerbation right now. -Continue Symbicort -continue albuterol Qualifiers: Qualified Code(s): J44.9 - Chronic obstructive pulmonary disease, unspecified (4) Non-small cell cancer of right lung Current Visit: No Status: Resolved non-small cell lung cancer with right upper and lower lobectomies in 2013 (5) Tobacco abuse Current Visit: Yes Status: Acute The patient has been smoking since she was 12 years old and currently smokes 1/ 2 ppd. (6) Tobacco abuse counseling Current Visit: Yes Status: Acute The patient was counseled on smoking cessation and stated in understanding however, she declined at this time. Subjective Principal diagnosis: Hemoptysis Interval history: Patient is alert and oriented times 3 and no acute distress. She reports she has had hemoptysis 2 times today with teaspoon amount. Denies fever, chills, night sweats, shortness of breath, chest pain. She has no other complaints. Objective PUL Vital signs: Last Vital Signs Temp 97.9 F 03/15/18 07:19 Pulse 71 03/15/18 07:19 Resp 17 03/15/18 07:19 BP 102/67 03/15/18 07:19 Pulse Ox 98 03/15/18 07:19 General appearance: no acute distress Eyes: nonicteric ENT: oropharynx moist Neck: supple Effort: normal Auscultation: bilateral: diminished breath sounds Cardiovascular: regular rate and rhythm Gastrointestinal: normoactive bowel sounds, soft, non-tender, non-distended Integumentary: normal Extremities: no cyanosis, no edema Musculoskeletal: no deformities normal mental status, non-focal exam mood appropriate, affect normal Results - Laboratory Findings CBC and BMP: 03/15/18 01:07 03/15/18 01:07 PT/INR, D-dimer PT 11.6 Seconds (9.4-12.1) 03/15/18 01:07 Abnormal lab findings: Abnormal lab results RBC 3.77 M/mcL (3.82-4.97) L 03/15/18 01:07 Plt Count 438 K/mcL (140-400) H 03/15/18 01:07 Nucleated RBCs/100 WBC 0.3 /100 WBC (0) H 03/14/18 10:11 Phosphorus 4.7 mg/dL (2.7-4.5) H 03/15/18 01:07 Total Bilirubin 0.2 mg/dL (0.3-1.0) L 03/15/18 01:07 AST 12 Units/L (13-39) L 03/15/18 01:07 LDL Cholesterol, Calc 110 mg/dL (0-99) H 03/15/18 01:07 - Clinical Findings Intake & Output: Intake & Output 03/14/18 03/15/18 03/15/18 23:59 07:59 15:59 Intake Total 1750 / 1750 Output Total 0 / 0 Balance 1750 / 1750 Consult Discharge Plan - Plan Referrals: Herlinda Espinal MD [Primary Care Provider] - <Lilia Atkins - Last Filed: 03/15/18 10:47> Date of Encounter: 03/15/18 Objective PUL Vital signs: Last Vital Signs Temp 97.8 F 03/15/18 10:34 Pulse 77 03/15/18 10:34 Resp 17 03/15/18 10:34 BP 99/65 03/15/18 10:34 Pulse Ox 96 03/15/18 10:34 Results - Laboratory Findings CBC and BMP: 03/15/18 01:07 03/15/18 01:07 PT/INR, D-dimer PT 11.6 Seconds (9.4-12.1) 03/15/18 01:07 Abnormal lab findings: Abnormal lab results RBC 3.77 M/mcL (3.82-4.97) L 03/15/18 01:07 Plt Count 438 K/mcL (140-400) H 03/15/18 01:07 Nucleated RBCs/100 WBC 0.3 /100 WBC (0) H 03/14/18 10:11 Phosphorus 4.7 mg/dL (2.7-4.5) H 03/15/18 01:07 Total Bilirubin 0.2 mg/dL (0.3-1.0) L 03/15/18 01:07 AST 12 Units/L (13-39) L 03/15/18 01:07 LDL Cholesterol, Calc 110 mg/dL (0-99) H 03/15/18 01:07 - Clinical Findings Intake & Output: Intake & Output 03/14/18 03/15/18 03/15/18 23:59 07:59 15:59 Intake Total 1750 / 1750 300 / 300 Output Total 0 / 0 600 / 600 Balance 1750 / 1750 -300 / -300 - Attending Attestation I examined this patient and my medical decision-making was reviewed with the Resident Physician. I agree with the documented findings, disposition and treatment plan as described except to the extent set forth below. Patient seen and examined. Labs, radiology, chart personally reviewed. 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 Once AFB smear from sputum is negative 2 will plan for bronchoscopy.
--- NOTE | 2018-03-15 11:48 | Infectious Disease Consult ---
Date of Encounter: 03/15/18 Time of Encounter: 11:40 Assessment and Plan (1) Hemoptysis Status: Acute Assessment and plan: Unlikely to be related to tuberculosis Patient has area of consolidation in the right upper lobe on CT that although more pronounced are similar to areas on a previous CT scan Patient does not have fevers or significant night sweats although she does report that she does sweat somewhat at night due to multiple blankets No systemic signs of infection including fever, tachycardia, leukocytosis Agree with AFB staining every 8 hours 3 and AFB culture Bronchoscopy per pulmonary once two negative AFB smears are been obtained Will DC azithromycin and ceftriaxone (2) Mass of right lung Status: Acute Assessment and plan: Possibly postsurgical versus recurrence of malignancy Infection is also considered but felt to be less likely as the patient has no other signs or symptoms of infection Pulmonary is following and plan for bronchoscopy once patient has 2 negative AFB smears Further management per pulmonary (3) COPD (chronic obstructive pulmonary disease) Status: Acute Assessment and plan: Does not appear to be in acute exacerbation Further management per pulmonary/primary Qualifiers: COPD type: unspecified COPD Qualified Code(s): J44.9 - Chronic obstructive pulmonary disease, unspecified (4) Anxiety Status: Acute (5) Tobacco abuse Status: Acute Infectious Disease HPI - Data of Consult Patient: new to practice Consult date: 03/15/18 Requesting Physician: Janae Nguyen Primary Care Provider: Herlinda Espinal - Consult Narrative Reason for consult: Hemoptysis History of present illness: Ms. White is a 53 year old female with history of non-small cell lung cancer status post resection and chemotherapy, COPD, tobacco abuse, anxiety/ depression. Patient was admitted March 14 for hemoptysis. Infectious disease was consulted due to hemoptysis and concerns for tuberculosis. Patient is a 53-year-old female with history status stated above. Patient states that on Tuesday of this week she developed hemoptysis. She reports coughing throughout the day and bringing up blood with her cough. She is unable to further quantify the amount of hemoptysis she was having but states that each time she produces sputum approximately half of it was blood. She reports it was dark red with clots. She states she has never had anything like this before. Patient also reports a general feeling of malaise. She feels at this time her hemoptysis is improving. She states that prior to arrival she had some chills with this is normal for her. She also reports occasionally sweating at night but she normally uses 3 blankets so this is something that occurs frequently. She reports rarely are her night sweats bad enough that she has to change her nightgown and she has never had night sweats so severe that it required her to change her sheets. She reports an unintentional weight loss over the last several months that she attributes to life stress and poor eating habits. Patient lives at home with her daughter. She denies any recent travel and has never traveled outside the country. She denies any exposure to tuberculosis in her lifetime. She has never been incarcerated and she has never lived in a homeless penitentiary. She denies any sick contacts. CC: Janae Nguyen Past Med Surg Social Fam HX - Past Medical History Medical history: cancer, COPD Psychiatric history: anxiety - Past Surgical History Surgical History: hysterectomy - Social History Smoking Status: Current every day smoker Smokeless Tobacco Status: No Alcohol use: none Drug use: none - Family History Mother Adopted: No Hx Family Neurologic Disorders: Yes (stroke) Infectious Disease-CN:Meds Gabapentin [Neurontin] 300 mg PO TID PRN 11/25/15 [History] Albuterol Sulfate [Albuterol Inhaler] 1 puff IH Q6HR PRN #1 inhaler 03/05/16 [Rx ] Cholecalciferol (D-3) [Vitamin D] 1,000 unit PO DAILY 06/02/16 [History] Ibuprofen [Motrin] 200 mg PO Q6HR PRN 06/02/16 [History] Oxygen 2 l .ROUTE AD PRN 06/02/16 [History] Calcium Carbonate/Vitamin D3 [Calcium 600 + Vit D Tablet] 1 each PO DAILY [History] Fluticasone/Vilanterol [Breo Ellipta 100-25 Mcg INH] 1 each IH DAILY 12/26/17 [ History] Loratadine/Pseudoephedrine [Allergy-Congestion Rlf-D 12Hr] 1 each PO BID [History] Meloxicam [Mobic] 15 mg PO DAILY 02/07/18 [History] Citalopram Hydrobromide [Citalopram HBr] 10 mg PO DAILY 03/14/18 [History] clonazePAM [Klonopin] 0.5 mg PO BID 03/14/18 [History] 3 Allergy/AdvReac Type Severity Reaction Status Date / Time adhesive tape Allergy Hives Verified 02/07/18 14:04 metronidazole [From Flagyl] AdvReac Gastrointestinal Verified 02/07/18 14:04 Upset steriods Allergy Fainting Uncoded 02/07/18 14:04 - Constitutional Constitutional: Present: chills, malaise, night sweats, weight loss. Absent: fever(s) - EENT Eyes: Absent: change in vision Nose, mouth and throat: Absent: mouth lesions, mouth pain, nasal discharge, sore throat - Cardiovascular Cardiovascular: Absent: chest pain, leg edema - Respiratory Respiratory: Present: hemoptysis. Absent: cough, dyspnea - Gastrointestinal Gastrointestinal: Absent: abdominal pain, nausea, vomiting - Genitourinary Genitourinary: Absent: dysuria, hematuria - Musculoskeletal Musculoskeletal: Absent: arthralgias, myalgias - Integumentary Integumentary: Absent: non-healing lesions, rash - Neurological Neurological: Absent: syncope, tingling - Psychiatric Psychiatric: Absent: anxiety, depression - Hematologic/Lymphatic Hematologic/Lymphatic: Absent: lymphadenopathy - Allergic/Immunologic Allergic/Immunologic: Absent: throat swelling, itchy eyes Exam - Constitutional Vitals: Temp Pulse Resp BP Pulse Ox 97.8 F 77 17 99/65 96 03/15/18 10:34 03/15/18 10:34 03/15/18 10:34 03/15/18 10:34 03/15/18 10:34 General appearance: cooperative, no acute distress - Head Head exam: Present: atraumatic, normal inspection, normocephalic - Eye Eye exam: Present: EOMI, PERRL - Neck Neck exam: Absent: lymphadenopathy - Respiratory Respiratory exam: Present: decreased breath sounds (Right upper lobe), CTAB. Absent: rales, rhonchi, wheezes - Cardiovascular Cardiovascular exam: Present: RRR. Absent: diastolic murmur, irregular rhythm, systolic murmur, tachycardia - GI/Abdominal GI/Abdominal exam: Present: normal bowel sounds, soft. Absent: distended, tenderness - Extremities Exam Extremities exam: Absent: calf tenderness, pedal edema - Neurological Exam Neurological exam: Present: alert, oriented X3, no focal deficits - Psychiatric Psychiatric exam: Present: depressed - Skin Skin exam: Present: dry, intact, warm Infectious Disease CN: Results - Labs CBC & Chem 7: 03/15/18 01:07 03/15/18 13:05 Cultures: Cultures 03/15/18 00:00 Legionella Antigen - Final Urine,Kidney Serology: Serology 03/15/18 03/14/18 Range/Units 00:00 18:35 Urine Color Yellow (Yellow) Urine Clarity Clear (Clear) Urine pH 7.0 (5.0-8.0) pH Units Ur Specific [place] 1.023 (1.010-1.025) Urine Protein Negative (Neg-Trace) mg/dL Urine Glucose (UA) Normal (Normal) mg/dL Urine Ketones Negative (Negative) mg/dL Urine Blood Negative (Negative) Urine Nitrite Negative (Negative) Urine Bilirubin Negative (Negative) Urine Urobilinogen Normal (Normal) mg/dL Ur Leukocyte Esterase Negative (Negative) Influenza Type A (PCR) Negative (Negative) Influenza Type B (PCR) Negative (Negative) RSV (PCR) Negative (Negative) Consult Discharge Plan - Plan Referrals: Herlinda Espinal MD [Primary Care Provider] - - Attending Attestation I examined this patient and my medical decision-making was reviewed with the Resident Physician. I agree with the documented findings, disposition and treatment plan as described except to the extent set forth below. This is an addendum to original report dictated by resident physician. Please refer to residents note for full details. Patient is 53-year-old woman has had a history of cancer in the past non-small cell carcinoma status post treatment with chemotherapy and resection about 10 years ago also has tobacco abuse, COPD, anxiety and depression was admitted to [facility] with hemoptysis. There was a concern for a lesion in the lung that is cavitary and there was concern for infectious versus inflammatory versus other. Patient tells me she has had an unintentional 5 pound weight loss. She does have night sweats and she feels chills sometimes. Her hemoptysis has improved since she has been here. I was called by the pulmonary resident yesterday I asked to place a PPD, AFB 3 at least 8 hours apart and to not start any antibiotics. Patient has had 2 AFB done so far both of them shows no mycobacteria. The third AFB has been sent but has not been read yet. Patient s PPD is placed we will repeat it tomorrow as well. Assessment and plan Hemoptysis Mass of the right long COPD Tobacco abuse Anxiety Weight loss Recommendations: At this point I am not sure was causing the patients symptoms and CT findings. Infection is possible I asked the patient about all her social history and exposure history and travel history and tuberculosis is low on my differential. Other infectious etiologies are possible including fungal and bacteria. Patient has no SIRS criteria so I will hold off any antibiotics until 3 AFBs are negative and patient goes for a bronchoscopy. Please send BAL for routine cultures, anaerobic, AFB, and GMS stain. Will also need to check cytology and pathology. If no malignancy found I might order fungal serologies as well including histo plasma, Blastomyces, cryptococcus, Aspergillus. Told nursing staff if his third AFB continues to be negative May DC airborne isolation.
[2018-03-15 13:43] LABS: BUN/Creatinine Ratio 16 (6-26); Blood Urea Nitrogen 10 mg/dL (6-20); Calcium 9.1 mg/dL (8.6-10.3); Carbon Dioxide 26 mEq/L (23-29); Chloride 107 mEq/L (98-107); Glucose 190 mg/dL (70-105); Osmolality,Calculated 290 (280-300); Potassium 3.8 mEq/L (3.5-5.1); Sodium 138 mEq/L (136-145); eGFR For African Americans > 60 (> 60); eGFR For Non-African Americans > 60 (> 60)
[2018-03-15] MEDS ORDERED: *HR* LORazepam Oral Conc 2 MG/ML PO PRN (14:31)
--- NOTE | 2018-03-15 14:36 | Internal Med Progress Note ---
Date of Encounter: 03/15/18 Time of Encounter: 14:32 - Assessment and plan (1) Hemoptysis Current Visit: Yes Status: Acute Assessment and plan: Slowly improving per patient. (2) Pneumonia Current Visit: Yes Status: Acute Assessment and plan: SOB DD Possibly TB, needs ruled out with AFB. Continue Rocephin and azithromycin -airborne precautions - Blood Cx - Likely bronchoscopy soon. ID and Pulmonology following. Qualifiers: Pneumonia type: due to unspecified organism Laterality: unspecified laterality Lung location: unspecified part of lung Qualified Code(s): J18.9 - Pneumonia, unspecified organism (3) Mass of right lung Current Visit: Yes Status: Acute Assessment and plan: the patient has history of lung cancer 14 years ago, report night sweats , hemoptysis and cough as well as weight loss, TB workup is pending, pulmonary was consulted Possible bronchoscopy if negative AFB. (4) COPD (chronic obstructive pulmonary disease) Current Visit: Yes Status: Acute Assessment and plan: Duo Nebs prn Qualifiers: COPD type: unspecified COPD Qualified Code(s): J44.9 - Chronic obstructive pulmonary disease, unspecified (5) Tobacco abuse counseling Current Visit: Yes Status: Acute (6) DVT prophylaxis Current Visit: Yes Status: Acute Assessment and plan: SCD - Time Spent With Patient Total time spent is greater than 50% in coordination of care (as documented) at patient's floor/unit and/or counseling patient: - Subjective Interval history: States hemoptysis is improving. Denies fevers/chills, n/v. - Constitutional Vitals: Temp Pulse Resp BP Pulse Ox 97.8 F 77 17 99/65 96 03/15/18 10:34 03/15/18 10:34 03/15/18 10:34 03/15/18 10:34 03/15/18 10:34 General appearance: Present: A&O X 3 Exam: - Head Head exam: Present: atraumatic, normocephalic - Eye Eye exam: Present: PERRL, conjuntiva pink, sclera anicteric Pupils: Present: PERRL - Neck Neck exam general surgery: Present: supple, trachea midline. Absent: lymphadenopathy - Respiratory Respiratory exam: Present: rhonchi, wheezes. Absent: accessory muscle use, rales - Cardiovascular Cardiovascular exam: Present: RRR, +S1, +S2. Absent: diastolic murmur, gallop, rubs, systolic murmur - GI/Abdominal GI/Abdominal exam: Present: normal bowel sounds, soft, no peritoneal signs. Absent: distended, tenderness - Extremities Exam Extremities exam: Present: warm, radial pulses palpable and symmetrical. Absent : calf tenderness, cyanotic, pedal edema Internal Medicine: Result - Labs CBC & Chem 7: 03/15/18 01:07 03/15/18 13:05 Labs: Short CBC 03/15/18 Range/Units 01:07 WBC 6.5 (4.3-11.1) K/mcL Hgb 12.0 (11.5-15.4) g/dL Hct 36.6 (35.3-44.9) % Plt Count 438 H (140-400) K/mcL Neutrophils # 3.3 (1.6-8.9) K/mcL BMP 03/15/18 03/15/18 01:07 13:05 Sodium 140 138 Potassium 4.0 3.8 Chloride 105 107 Carbon Dioxide 28 26 BUN 12 10 Creatinine 0.62 0.63 Glucose 87 190 H Calcium 9.3 9.1 Cardiac Enzymes 03/14/18 03/15/18 03/15/18 Range/Units 18:39 01:07 06:27 Troponin I < 0.03 < 0.03 < 0.03 (< 0.04) ng/mL Liver Function 03/15/18 Range/Units 01:07 Total Bilirubin 0.2 L (0.3-1.0) mg/dL AST 12 L (13-39) Units/L ALT 8 (7-52) Units/L Alkaline Phosphatase 74 (34-104) Units/L Albumin 3.7 (3.5-5.7) g/dL Urine 03/15/18 Range/Units 00:00 Urine Color Yellow (Yellow) Urine Clarity Clear (Clear) Urine pH 7.0 (5.0-8.0) pH Units Ur Specific [place] 1.023 (1.010-1.025) Urine Protein Negative (Neg-Trace) mg/dL Urine Glucose (UA) Normal (Normal) mg/dL - ABG Interpretation ABG results: PT/INR, D-dimer PT 11.6 Seconds (9.4-12.1) 03/15/18 01:07 Consult Discharge Plan - Plan Referrals: Herlinda Espinal MD [Primary Care Provider] -
[2018-03-15] MEDS: Budesonide/Formoterol 80/4.5 MDI IH SCH (21:16)
[2018-03-16] MEDS: Loratadine/Pseudophed (12 HR) 1 EACH TABLET PO SCH ×2 (07:18→20:07)
[2018-03-16] MEDS: clonazePAM 0.5 MG TABLET PO SCH ×2 (07:18→20:07)
[2018-03-16] MEDS: Cholecalciferol (D-3) 1,000 UNIT TABLET PO SCH (07:19)
[2018-03-16] MEDS: Budesonide/Formoterol 80/4.5 MDI IH SCH ×2 (07:24→20:29)
[2018-03-16 10:33] LABS: Basophils # 0.1 K/mcL (0.0-0.2); Basophils % 0.8 %; Eosinophils # 0.1 K/mcL (0.0-0.6); Eosinophils % 0.8 %; Hematocrit 40.3 % (35.3-44.9); Hemoglobin 13.2 g/dL (11.5-15.4); Immature Granulocytes % 0.2 % (0-4); Lymphocytes # 1.9 K/mcL (0.6-4.6); Lymphocytes % 31.5 %; Mean Corpuscular HGB Conc 32.8 g/dL (31.6-35.5); Mean Corpuscular Hemoglobin 31.7 pg (28.0-33.3); Mean Corpuscular Volume 96.6 fL (83.0-100.0); Mean Platelet Volume 9.3 fL (9.4-12.4); Monocytes # 0.5 K/mcL (0.0-1.3); Monocytes % 7.5 %; Neutrophils # 3.5 K/mcL (1.6-8.9); Platelet Count 441 K/mcL (140-400); Red Blood Count 4.17 M/mcL (3.82-4.97); Red Cell Distribution Width 12.2 % (11.5-14.5); Segmented Neutrophils % 59.2 %
[2018-03-16 10:53] LABS: BUN/Creatinine Ratio 13 (6-26); Blood Urea Nitrogen 7 mg/dL (6-20); Carbon Dioxide 28 mEq/L (23-29); Chloride 102 mEq/L (98-107); Glucose 131 mg/dL (70-105); Osmolality,Calculated 284 (280-300); Sodium 137 mEq/L (136-145); eGFR For African Americans > 60 (> 60); eGFR For Non-African Americans > 60 (> 60)
--- NOTE | 2018-03-16 12:16 | Infectious Disease Progress No ---
Date of Encounter: 03/16/18 Time of Encounter: 12:12 - Assessment and Plan (1) Mass of right lung Current Visit: Yes Status: Acute Etiology unclear. CT of the chest completed 03/14/18 showed post-surgical changes of the prior right upper and middle lobectomies with progressive consolidation at the right lung apex with questionable areas of cavitation and/or cicatricial bonchiectasis concerning for suerimposed infectious process such as PNA or TB. Residual malignancy/disease recurrence cannot be ruled out. Given that the patient has no other symptoms, likely not infectious. AFB negative x 2 with 3rd one pending. Pulmonology consulted and following. Plan for bronchoscopy tomorrow. Send BAL for cultures (aerobic and anaerobic), AFB, and GMS stain as well as cytology/ pathology. If no malignancy found, consider fungal serologies including Histoplasma, Blastomyces, Cryptococcus, and Aspergillus. PPD placed 03/14/18 at 1730. Continue airborne isolation if AFB smear negative x 3 or PPD is negative at 48 hours. Continue to observe off antibiotics at this time. (2) Hemoptysis Current Visit: Yes Status: Acute Unlikely to be related to tuberculosis Patient has area of consolidation in the right upper lobe on CT that although more pronounced are similar to areas on a previous CT scan Patient does not have fevers or significant night sweats although she does report that she does sweat somewhat at night due to multiple blankets No systemic signs of infection including fever, tachycardia, leukocytosis Pulmonology consulted and following. (3) COPD (chronic obstructive pulmonary disease) Current Visit: Yes Status: Acute Qualifiers: COPD type: unspecified COPD Qualified Code(s): J44.9 - Chronic obstructive pulmonary disease, unspecified (4) Anxiety Current Visit: Yes Status: Acute (5) Tobacco abuse Current Visit: Yes Status: Acute - Subjective Interval history: Agency and examined. No acute events noted overnight. Patient sitting up in bed states overall she feels okay. Denies any fevers or chills or rigors. Denies chest pain, shortness of breath. Reports 1 episode of dark brown hemoptysis this morning. Denies nausea, vomiting, diarrhea, or constipation. States she has not had a bowel movement, but is passing gas. She denies abdominal pain, urinary complaints, or appetite changes. She denies oral thrush or new skin lesions. Infect Dis PN-Objective Data - Labs CBC & Chem 7: 03/16/18 09:17 03/16/18 09:17 Labs: Laboratory Results - last 24 hr 03/15/18 03/16/18 03/16/18 13:05 09:17 09:17 WBC 6.0 RBC 4.17 Hgb 13.2 Hct 40.3 MCV 96.6 MCH 31.7 MCHC 32.8 RDW 12.2 Plt Count 441 H MPV 9.3 L Immature Gran % 0.2 Seg Neutrophils % 59.2 Lymphocytes % 31.5 Monocytes % 7.5 Eosinophils % 0.8 Basophils % 0.8 Neutrophils # 3.5 Lymphocytes # 1.9 Monocytes # 0.5 Eosinophils # 0.1 Basophils # 0.1 Sodium 138 137 Potassium 3.8 4.0 Chloride 107 102 Carbon Dioxide 26 28 BUN 10 7 Creatinine 0.63 0.53 L Est GFR ( Amer) > 60 > 60 Est GFR (Non-Af Amer) > 60 > 60 BUN/Creatinine Ratio 16 13 Glucose 190 H 131 H Calculated Osmolality 290 284 Calcium 9.1 10.0 Cultures: Cultures 03/15/18 08:04 Acid Fast Stain - Final Sputum 03/15/18 00:00 Legionella Antigen - Final Urine,Kidney Serology 03/15/18 03/14/18 Range/Units 00:00 18:35 Urine Color Yellow (Yellow) Urine Clarity Clear (Clear) Urine pH 7.0 (5.0-8.0) pH Units Ur Specific [place] 1.023 (1.010-1.025) Urine Protein Negative (Neg-Trace) mg/dL Urine Glucose (UA) Normal (Normal) mg/dL Urine Ketones Negative (Negative) mg/dL Urine Blood Negative (Negative) Urine Nitrite Negative (Negative) Urine Bilirubin Negative (Negative) Urine Urobilinogen Normal (Normal) mg/dL Ur Leukocyte Esterase Negative (Negative) Influenza Type A (PCR) Negative (Negative) Influenza Type B (PCR) Negative (Negative) RSV (PCR) Negative (Negative) Exam - Constitutional Vitals: Temp Pulse Resp BP Pulse Ox 98.1 F 70 15 117/75 92 03/16/18 06:47 03/16/18 06:47 03/16/18 07:25 03/16/18 06:47 03/16/18 08:22 General appearance: average body habitus, cooperative, no acute distress - Head Head exam: Present: atraumatic, normal inspection, normocephalic - Eye Eye exam: Present: EOMI, normal appearance, PERRL Pupils: Present: normal accommodation - ENT ENT exam: Present: mucous membranes moist - Neck Neck exam: Present: normal inspection - Respiratory Respiratory exam: Present: CTAB. Absent: rales, respiratory distress, rhonchi, wheezes - Cardiovascular Cardiovascular exam: Present: RRR, +S1, +S2 - GI/Abdominal GI/Abdominal exam: Present: normal bowel sounds, soft. Absent: distended, tenderness - Extremities Exam Extremities exam: Present: normal inspection. Absent: joint swelling, pedal edema, tenderness - Neurological Exam Neurological exam: Present: alert, oriented X3, no focal deficits - Psychiatric Psychiatric exam: Present: normal affect, normal mood - Skin Skin exam: Present: dry, intact, normal color, warm Consult Discharge Plan - Plan Referrals: Herlinda Espinal MD [Primary Care Provider] - - Attending Attestation I examined this patient and my medical decision-making was reviewed with the Resident Physician. I agree with the documented findings, disposition and treatment plan as described except to the extent set forth below.
--- NOTE | 2018-03-16 13:13 | Pulmonology Progress Note ---
Date of Encounter: 03/16/18 Time of Encounter: 12:20 Subjective Principal diagnosis: Hemoptysis Interval history: Patient is doing better and has only mild old blood. Objective PUL Vital signs: Last Vital Signs Temp 98.1 F 03/16/18 06:47 Pulse 70 03/16/18 06:47 Resp 15 03/16/18 07:25 BP 117/75 03/16/18 06:47 Pulse Ox 92 03/16/18 08:22 General appearance: no acute distress Eyes: nonicteric Neck: supple Effort: normal Auscultation: bilateral: diminished breath sounds Percussion: bilateral: not dull Cardiovascular: regular rate and rhythm Gastrointestinal: normoactive bowel sounds Extremities: no cyanosis normal mental status, non-focal exam mood appropriate Results - Laboratory Findings CBC and BMP: 03/16/18 09:17 03/16/18 09:17 PT/INR, D-dimer PT 11.6 Seconds (9.4-12.1) 03/15/18 01:07 Abnormal lab findings: Abnormal lab results Plt Count 441 K/mcL (140-400) H 03/16/18 09:17 MPV 9.3 fL (9.4-12.4) L 03/16/18 09:17 Nucleated RBCs/100 WBC 0.3 /100 WBC (0) H 03/14/18 10:11 Creatinine 0.53 mg/dL (0.60-1.20) L 03/16/18 09:17 Glucose 131 mg/dL (70-105) H 03/16/18 09:17 Phosphorus 4.7 mg/dL (2.7-4.5) H 03/15/18 01:07 Total Bilirubin 0.2 mg/dL (0.3-1.0) L 03/15/18 01:07 AST 12 Units/L (13-39) L 03/15/18 01:07 LDL Cholesterol, Calc 110 mg/dL (0-99) H 03/15/18 01:07 - Microbiology Findings Microbiology Findings: Microbiology, Last 48 Hours 03/15/18 08:04 Acid Fast Stain - Final Sputum 03/15/18 00:00 Legionella Antigen - Final Urine,Kidney - Clinical Findings Intake & Output: Intake & Output 03/15/18 03/16/18 03/16/18 23:59 07:59 15:59 Intake Total 1000 / 1000 240 / 240 Output Total 800 / 800 Balance 1000 / 1000 -800 / -800 240 / 240 Weight 62.3 kg Consult Discharge Plan - Plan Referrals: Herlinda Espinal MD [Primary Care Provider] - - Attending Attestation Assessment and plan: Hemoptysis is improving and with at least 2 negative AFB smear will plan for bronchoscopy tomorrow and explained to patient about the procedure with risks, alternative, benefits and she understand and agreed to have been done.
[2018-03-16] MEDS: *HR* LORazepam 0.5 MG TABLET PO PRN ×2 (13:17→23:14)
--- NOTE | 2018-03-16 17:42 | Internal Med Progress Note ---
Date of Encounter: 03/16/18 Time of Encounter: 16:42 - Assessment and plan (1) Hemoptysis Current Visit: Yes Status: Acute Assessment and plan: Possibly infectious such as malignancy vs pneumonia or other etiology CT chest 03/14 showed consolidation of right lung apex with questionable areas of cavitation and/or bronchtiectasis. AFB stains negative on 3 occasions, suggestive against TB Pulmonology and ID following, recommendations appreciated. States that she now only has scant amount of hemoptysis Bronchoscopy is scheduled for tomorrow. Antibiotics held and patient being monitored. (2) Mass of right lung Current Visit: Yes Status: Acute Assessment and plan: the patient has history of lung cancer 14 years ago, report night sweats , hemoptysis and cough as well as weight loss, TB workup is pending, pulmonary was consulted TB less likely as Negative AFB x3 and Holding antibiotics for now as possibly not pneumonia. bronchoscopy to be done tomorrow. (3) COPD (chronic obstructive pulmonary disease) Current Visit: Yes Status: Acute Qualifiers: COPD type: unspecified COPD Qualified Code(s): J44.9 - Chronic obstructive pulmonary disease, unspecified (4) Tobacco abuse counseling Current Visit: Yes Status: Acute (5) DVT prophylaxis Current Visit: Yes Status: Acute - Time Spent With Patient Total time spent is greater than 50% in coordination of care (as documented) at patient's floor/unit and/or counseling patient: - Subjective Interval history: States hemoptysis is near resolved Denies SOB, CP, n/v, fevers/chills. - Constitutional Vitals: Temp Pulse Resp BP Pulse Ox 98.0 F 79 18 110/75 95 03/16/18 16:41 03/16/18 16:41 03/16/18 16:41 03/16/18 16:41 03/16/18 16:41 General appearance: Present: A&O X 3 - Head Head exam: Present: atraumatic, normocephalic - Eye Eye exam: Present: PERRL, conjuntiva pink, sclera anicteric Pupils: Present: PERRL - Neck Neck exam general surgery: Present: supple, trachea midline. Absent: lymphadenopathy - Respiratory Respiratory exam: Present: CTAB. Absent: accessory muscle use, rales, rhonchi, wheezes Additional comments: Course breath sounds throughout - Cardiovascular Cardiovascular exam: Present: RRR, +S1, +S2. Absent: diastolic murmur, gallop, rubs, systolic murmur - GI/Abdominal GI/Abdominal exam: Present: normal bowel sounds, soft, no peritoneal signs. Absent: distended, tenderness - Extremities Exam Extremities exam: Present: warm, radial pulses palpable and symmetrical. Absent : calf tenderness, cyanotic, pedal edema - Neurological Exam Neurological exam: Present: CN II-XII intact, oriented X3, no focal deficits. Absent: pronater drift, facial droop, speech deficit - Skin Skin exam: Present: dry, intact Internal Medicine: Result - Labs CBC & Chem 7: 03/16/18 09:17 03/16/18 09:17 Labs: Short CBC 03/16/18 Range/Units 09:17 WBC 6.0 (4.3-11.1) K/mcL Hgb 13.2 (11.5-15.4) g/dL Hct 40.3 (35.3-44.9) % Plt Count 441 H (140-400) K/mcL Neutrophils # 3.5 (1.6-8.9) K/mcL BMP 03/16/18 09:17 Sodium 137 Potassium 4.0 Chloride 102 Carbon Dioxide 28 BUN 7 Creatinine 0.53 L Glucose 131 H Calcium 10.0 - ABG Interpretation ABG results: PT/INR, D-dimer PT 11.6 Seconds (9.4-12.1) 03/15/18 01:07 Consult Discharge Plan - Plan Referrals: Herlinda Espinal MD [Primary Care Provider] -
[2018-03-17 05:01] LABS: Basophils # 0.1 K/mcL (0.0-0.2); Basophils % 0.9 %; Eosinophils # 0.1 K/mcL (0.0-0.6); Eosinophils % 1.3 %; Hematocrit 41.5 % (35.3-44.9); Hemoglobin 13.2 g/dL (11.5-15.4); Immature Granulocytes % 0.2 % (0-4); Lymphocytes % 37.5 %; Mean Corpuscular HGB Conc 31.8 g/dL (31.6-35.5); Mean Corpuscular Hemoglobin 30.6 pg (28.0-33.3); Mean Corpuscular Volume 96.1 fL (83.0-100.0); Mean Platelet Volume 9.3 fL (9.4-12.4); Monocytes # 0.5 K/mcL (0.0-1.3); Monocytes % 9.1 %; Neutrophils # 2.7 K/mcL (1.6-8.9); Platelet Count 464 K/mcL (140-400); Red Blood Count 4.32 M/mcL (3.82-4.97); Red Cell Distribution Width 12.2 % (11.5-14.5)
[2018-03-17 05:21] LABS: BUN/Creatinine Ratio 24 (6-26); Blood Urea Nitrogen 16 mg/dL (6-20); Calcium 10.1 mg/dL (8.6-10.3); Carbon Dioxide 29 mEq/L (23-29); Chloride 100 mEq/L (98-107); Glucose 99 mg/dL (70-105); Osmolality,Calculated 285 (280-300); Potassium 4.3 mEq/L (3.5-5.1); Sodium 137 mEq/L (136-145); eGFR For African Americans > 60 (> 60); eGFR For Non-African Americans > 60 (> 60)
[2018-03-17] MEDS: Budesonide/Formoterol 80/4.5 MDI IH SCH (07:54)
[2018-03-17] MEDS ORDERED: *HR* FentaNYL (PF) 100 MCG/2 ML VIAL IVP ONE (08:05)
[2018-03-17] MEDS ORDERED: *HR* Midazolam HCl 2 MG/2 ML VIAL IVP ONE (08:05)
[2018-03-17] MEDS ORDERED: Lidocaine Viscous Oral Soln 15 ML SOLUTION MM ONE (08:05)
[2018-03-17] MEDS ORDERED: Tetracaine/Benzocaine/Butamben 200MG/SPRAY (100SPY/BOT) MM ONE (08:05)
[2018-03-17] MEDS ORDERED: Albuterol 2.5 MG/3 ML NEBULIZER IH ONE (08:05)
[2018-03-17] MEDS ORDERED: *HR* EPINEPHrine 1 MG/10 ML SYRINGE INTRATRACH PRN (08:05)
--- NOTE | 2018-03-17 08:05 | Pre-Sedation Evaluation ---
Pre-sedation evaluation - Pre-sedation checklist Date of procedure: 03/17/18 Procedure: Bronchoscopy Recent Vitals: Last Vital Signs Temp 97.9 F 03/17/18 07:00 Pulse 79 03/17/18 07:00 Resp 15 03/17/18 07:56 BP 97/64 03/17/18 07:00 Pulse Ox 97 03/17/18 07:56 H&P (including ROS) documented in medical record: Yes Previous reaction to sedatives/anesthetics: No Possible difficult airway: No ASA Classification *see protocol: CLASS II-Mild systemic disease Plan of Care: Pt appropriate candidate for procedure/moderate/conscious sedation , Risks/benefits of procedure/sedation discussed w/ patient/family
[2018-03-17] MEDS ORDERED: 0.9 % Sodium Chloride 1,000 ML IVC SCH (08:15)
--- NOTE | 2018-03-17 09:36 | Infectious Disease Progress No ---
Date of Encounter: 03/17/18 Time of Encounter: 09:33 - Assessment and Plan (1) Hemoptysis Current Visit: Yes Status: Acute Unlikely to be related to tuberculosis Patient has area of consolidation in the right upper lobe on CT that although more pronounced are similar to areas on a previous CT scan Patient does not have fevers or significant night sweats although she does report that she does sweat somewhat at night due to multiple blankets No systemic signs of infection including fever, tachycardia, leukocytosis Pulmonology consulted and following Plan for bronchoscopy today. We will follow-up on any culture data obtained from bronchoscopy No indication for antibiotics at this time (2) Mass of right lung Current Visit: Yes Status: Acute Etiology unclear. CT of the chest completed 03/14/18 showed post-surgical changes of the prior right upper and middle lobectomies with progressive consolidation at the right lung apex with questionable areas of cavitation and/or cicatricial bonchiectasis concerning for suerimposed infectious process such as PNA or TB. Residual malignancy/disease recurrence cannot be ruled out. Given that the patient has no other symptoms, likely not infectious. AFB negative x 3. Pulmonology consulted and following. Plan for bronchoscopy today. Send BAL for cultures (aerobic and anaerobic), AFB, and GMS stain as well as cytology/ pathology. If no malignancy found, consider fungal serologies including Histoplasma, Blastomyces, Cryptococcus, and Aspergillus. PPD negative. Discontinue airborne isolation as AFB smear negative x 3 and PPD is negative at 48 hours. Continue to observe off antibiotics at this time. (3) COPD (chronic obstructive pulmonary disease) Current Visit: Yes Status: Acute Qualifiers: COPD type: unspecified COPD Qualified Code(s): J44.9 - Chronic obstructive pulmonary disease, unspecified (4) Anxiety Current Visit: Yes Status: Acute (5) Tobacco abuse Current Visit: Yes Status: Acute - Subjective Interval history: Patient seen and examined at bedside. Patient states that she feels better today. She denies shortness of breath. She reports mild cough that is productive with pink sputum but otherwise no miguelina blood. She denies fever, chills, chest pain, abdominal pain, nausea, vomiting, diarrhea. Infect Dis PN-Objective Data - Labs CBC & Chem 7: 03/17/18 03:54 03/17/18 03:54 Labs: Laboratory Results - last 24 hr 03/16/18 03/16/18 03/17/18 09:17 09:17 03:54 WBC 6.0 5.4 RBC 4.17 4.32 Hgb 13.2 13.2 Hct 40.3 41.5 MCV 96.6 96.1 MCH 31.7 30.6 MCHC 32.8 31.8 RDW 12.2 12.2 Plt Count 441 H 464 H MPV 9.3 L 9.3 L Immature Gran % 0.2 0.2 Seg Neutrophils % 59.2 51.0 Lymphocytes % 31.5 37.5 Monocytes % 7.5 9.1 Eosinophils % 0.8 1.3 Basophils % 0.8 0.9 Neutrophils # 3.5 2.7 Lymphocytes # 1.9 2.0 Monocytes # 0.5 0.5 Eosinophils # 0.1 0.1 Basophils # 0.1 0.1 Sodium 137 Potassium 4.0 Chloride 102 Carbon Dioxide 28 BUN 7 Creatinine 0.53 L Est GFR ( Amer) > 60 Est GFR (Non-Af Amer) > 60 BUN/Creatinine Ratio 13 Glucose 131 H POC Glucose Calculated Osmolality 284 Calcium 10.0 03/17/18 03/17/18 03:54 05:45 WBC RBC Hgb Hct MCV MCH MCHC RDW Plt Count MPV Immature Gran % Seg Neutrophils % Lymphocytes % Monocytes % Eosinophils % Basophils % Neutrophils # Lymphocytes # Monocytes # Eosinophils # Basophils # Sodium 137 Potassium 4.3 Chloride 100 Carbon Dioxide 29 BUN 16 Creatinine 0.67 Est GFR ( Amer) > 60 Est GFR (Non-Af Amer) > 60 BUN/Creatinine Ratio 24 Glucose 99 POC Glucose 93 Calculated Osmolality 285 Calcium 10.1 Cultures: Cultures 03/15/18 19:56 Acid Fast Stain - Final Sputum 03/15/18 08:04 Acid Fast Stain - Final Sputum 03/15/18 00:00 Legionella Antigen - Final Urine,Kidney Serology 03/15/18 03/14/18 Range/Units 00:00 18:35 Urine Color Yellow (Yellow) Urine Clarity Clear (Clear) Urine pH 7.0 (5.0-8.0) pH Units Ur Specific [place] 1.023 (1.010-1.025) Urine Protein Negative (Neg-Trace) mg/dL Urine Glucose (UA) Normal (Normal) mg/dL Urine Ketones Negative (Negative) mg/dL Urine Blood Negative (Negative) Urine Nitrite Negative (Negative) Urine Bilirubin Negative (Negative) Urine Urobilinogen Normal (Normal) mg/dL Ur Leukocyte Esterase Negative (Negative) Influenza Type A (PCR) Negative (Negative) Influenza Type B (PCR) Negative (Negative) RSV (PCR) Negative (Negative) Exam - Constitutional Vitals: Temp Pulse Resp BP Pulse Ox 97.9 F 79 15 97/64 97 03/17/18 07:00 03/17/18 07:00 03/17/18 07:56 03/17/18 07:00 03/17/18 07:56 - Respiratory Respiratory exam: Present: CTAB. Absent: rales, rhonchi, wheezes - Cardiovascular Cardiovascular exam: Present: RRR. Absent: diastolic murmur, systolic murmur - Extremities Exam Extremities exam: Absent: pedal edema, tenderness - Neurological Exam Neurological exam: Present: alert, oriented X3 Consult Discharge Plan - Plan Referrals: Herlinda Espinal MD [Primary Care Provider] - - Attending Attestation I examined this patient and my medical decision-making was reviewed with the Resident Physician. I agree with the documented findings, disposition and treatment plan as described except to the extent set forth below.
[2018-03-17] MEDS: Cholecalciferol (D-3) 1,000 UNIT TABLET PO SCH (10:09)
[2018-03-17] MEDS: clonazePAM 0.5 MG TABLET PO SCH (10:09)
[2018-03-17] MEDS: Loratadine/Pseudophed (12 HR) 1 EACH TABLET PO SCH (10:09)
[2018-03-17] MEDS ORDERED: *HR* FentaNYL (PF) 100 MCG/2 ML VIAL ONE (14:25)
[2018-03-17] MEDS ORDERED: *HR* Midazolam HCl 5 MG/5 ML VIAL IVP ONE (14:25)
[2018-03-17] MEDS ORDERED: 0.9 % Sodium Chloride 500 ML IVC SCH (14:30)
[2018-03-17] MEDS ORDERED: Lidocaine Viscous Oral Soln 15 ML SOLUTION ONE (14:54)
[2018-03-17] MEDS ORDERED: Albuterol 2.5 MG/3 ML NEBULIZER ONE (15:06)
--- NOTE | 2018-03-17 15:47 | Discharge Summary ---
- NOTES TO OUTPATIENT PROVIDER Notes to Outpatient Provider: Follow-up with Pulmonology as scheduled. Follow- up with results of bronchoscopy/BAL which are pending. Orders not resulted at time of discharge: Pending orders 03/15/18 19:56 AFB Culture, Respiratory [TB] Routine 03/17/18 15:33 AFB Culture, Respiratory [TB] Routine Cell Count w Diff, Body Fluid [BF] Routine Culture,Respiratory [RM] Routine Fungal Culture [MYC] Routine Gram Stain [RM] Routine Cytology [PTH] Routine 03/18/18 04:00 BMP [Basic Metabolic Panel] AM 0400 Complete Blood Count [HEME] AM 0400 03/19/18 04:00 BMP [Basic Metabolic Panel] AM 0400 Complete Blood Count [HEME] AM 0400 03/20/18 04:00 BMP [Basic Metabolic Panel] AM 0400 Complete Blood Count [HEME] AM 0400 Date of Encounter: 03/17/18 Time of Encounter: 15:40 - Discharge Diagnosis (1) Hemoptysis Priority: Primary Status: Acute (2) Mass of right lung Priority: Secondary Status: Acute (3) COPD (chronic obstructive pulmonary disease) Priority: Secondary Status: Acute Qualifiers: COPD type: unspecified COPD Qualified Code(s): J44.9 - Chronic obstructive pulmonary disease, unspecified (4) Tobacco abuse counseling Priority: Secondary Status: Acute (5) DVT prophylaxis Priority: Secondary Status: Acute Hospital course: Ms. White is a 53 year old female with PMH lung cancer 14 years ago s/p right upper and lower lobe lobectomies, COPD who presented to [facility] complaining of similar episodes of hemoptysis associated with shortness of breath and cough and was advised by her city letter carrier to immediately seek medical attention at ED. She also c/ 2 weeks history of runny nose, headache and night sweats. She denies recent travel, TB exposure, hospitalizations. She admits to smoking since 13 years old and currently smokes 1/2 ppd. she was evaluated by the ER staff and her labs were unremarkable, however Chest CT revealed Progressive consolidation of right upper lung, suspicious pneumonia or TB. The patient was admitted for further evaluation and management. Dr. Atkins from Pulmonology was consulted suggested start IV antibiotics Rocephine and Azithromycin, sputum culture for TB. She she had serial AFB sputum cultures that suggested against TB infection. Infectious disease was consulted for evaluation of possible TB or pneumonia. She was stable when being monitored after antibiotics. Infectious disease was consulted and based on presentation, deemed this is less likely infection and antibiotics were held. She had bronchoscopy done on 03/17 and tolerated procedure well. She is planned to follow-up with BAL results in office. She was discharged home in stable condition. - Time Spent with Patient Total time spent providing and/or coordinating discharge services: - Discharge Medications Home Medications: Gabapentin [Neurontin] 300 mg PO TID PRN 11/25/15 [History] Albuterol Sulfate [Albuterol Inhaler] 1 puff IH Q6HR PRN #1 inhaler 03/05/16 [Rx ] Cholecalciferol (D-3) [Vitamin D] 1,000 unit PO DAILY 06/02/16 [History] Ibuprofen [Motrin] 200 mg PO Q6HR PRN 06/02/16 [History] Oxygen 2 l .ROUTE AD PRN 06/02/16 [History] Calcium Carbonate/Vitamin D3 [Calcium 600 + Vit D Tablet] 1 each PO DAILY [History] Fluticasone/Vilanterol [Breo Ellipta 100-25 Mcg INH] 1 each IH DAILY 12/26/17 [ History] Loratadine/Pseudoephedrine [Allergy-Congestion Rlf-D 12Hr] 1 each PO BID [History] Meloxicam [Mobic] 15 mg PO DAILY 02/07/18 [History] Citalopram Hydrobromide [Citalopram HBr] 10 mg PO DAILY 03/14/18 [History] clonazePAM [Klonopin] 0.5 mg PO BID 03/14/18 [History] Allergies/Adverse Reactions: 3 Allergy/AdvReac Type Severity Reaction Status Date / Time adhesive tape Allergy Hives Verified 02/07/18 14:04 metronidazole [From Flagyl] AdvReac Gastrointestinal Verified 02/07/18 14:04 Upset steriods Allergy Fainting Uncoded 02/07/18 14:04 Date of admission: 03/14/18 18:15 Primary care physician: Herlinda Espinal Consults: 03/14/18 18:24 Consult to Nurse Navigator [CONS] Routine Comment: Discharging clinician: Archana Nice - Constitutional Vitals: Temp Pulse Resp BP Pulse Ox 98.1 F 80 16 111/78 91 03/17/18 10:40 03/17/18 15:10 03/17/18 15:10 03/17/18 15:10 03/17/18 15:10 General appearance: Present: A&O X 3 Exam: - Head Head exam: Present: atraumatic, normocephalic - Eye Eye exam: Present: PERRL, conjuntiva pink, sclera anicteric Pupils: Present: PERRL - Neck Neck exam general surgery: Present: supple, trachea midline. Absent: lymphadenopathy - Respiratory Respiratory exam: Present: CTAB. Absent: accessory muscle use, rales, rhonchi, wheezes Additional comments: Course breath sounds throughout Less breath sounds in right lung field - Cardiovascular Cardiovascular exam: Present: RRR, +S1, +S2. Absent: diastolic murmur, gallop, rubs, systolic murmur - GI/Abdominal GI/Abdominal exam: Present: normal bowel sounds, soft, no peritoneal signs. Absent: distended, tenderness - Extremities Exam Extremities exam: Present: warm, radial pulses palpable and symmetrical. Absent : calf tenderness, cyanotic, pedal edema - Neurological Exam Neurological exam: Present: CN II-XII intact, oriented X3, no focal deficits. Absent: pronater drift, facial droop, speech deficit - Skin Skin exam: Present: dry, intact - Patient Status Disposition: Home, Self-Care Condition: Fair Functional capacity at discharge: independent ambulation Overall status at discharge: patient is progressing back to baseline - Discharge Instructions Follow Up With: Herlinda Espinal MD [Primary Care Provider] - - Diet and Activity Activity: increase activity as tolerated Diet: advance to your usual diet
[2018-03-17 15:55] VITALS: BP 105/73
[2018-03-17 18:05] LABS: Appearance of Body Fluid Slightly Hazy (Clear); Volume of Body Fluid 17 mL
== END 2018-03-17 18:22 | disposition home or self-care (01) | DRG 145 ==
LOC: 3ANU 09:39 → EMEROO 09:39 → 3ANU 16:04
PROVIDERS: ADMIT Internal Medicine Nephrology; ATTEND Internal Medicine Nephrology

== ENCOUNTER 2019-10-25 08:25 | Observation (INO) ==
[2019-10-25] MEDS ORDERED: Ipratropium/Albuterol Neb 3 ML IH ONE (08:49)
[2019-10-25] MEDS ORDERED: methylPREDNISolone 125 MG/2 ML VIAL IVP ONE (08:49)
[2019-10-25] MEDS ORDERED: 0.9 % Sodium Chloride 1,000 ML IVC ONE (08:50)
[2019-10-25] MEDS ORDERED: Isovue-370 500 ML BOTTLE IVP ONE (09:02)
[2019-10-25] MEDS ORDERED: Azithromycin 500 MG in 0.9 % Sodium Chloride 250 ML IVPB ONE (09:23)
[2019-10-25] MEDS ORDERED: cefTRIAXone 1,000 MG in Water for inj. (sterile) 10 ML IVP ONE (09:23)
[2019-10-25 09:24] LABS: BUN/Creatinine Ratio 16 (6-26); Blood Urea Nitrogen 10 mg/dL (6-20); Carbon Dioxide 28 mEq/L (23-29); Chloride 101 mEq/L (98-107); Glucose 103 mg/dL (70-105); Osmolality,Calculated 287 (280-300); Potassium 4.3 mEq/L (3.5-5.1); Sodium 139 mEq/L (136-145); Troponin I < 0.03 ng/mL (< 0.04); eGFR For African Americans > 60 (> 60); eGFR For Non-African Americans > 60 (> 60)
[2019-10-25 09:40] LABS: Basophils # 0.1 K/mcL (0.0-0.2); Basophils % 0.9 %; Eosinophils % 0.6 %; Hematocrit 43.1 % (35.3-44.9); Hemoglobin 14.4 g/dL (11.5-15.4); Immature Granulocytes % 0.3 % (0-4); Lymphocytes # 1.3 K/mcL (0.6-4.6); Lymphocytes % 17.9 %; Mean Corpuscular HGB Conc 33.4 g/dL (31.6-35.5); Mean Corpuscular Hemoglobin 32.2 pg (28.0-33.3); Mean Corpuscular Volume 96.4 fL (83.0-100.0); Mean Platelet Volume 9.8 fL (9.4-12.4); Monocytes % 13.6 %; Neutrophils # 4.7 K/mcL (1.6-8.9); Platelet Count 227 K/mcL (140-400); Red Blood Count 4.47 M/mcL (3.82-4.97); Red Cell Distribution Width 12.9 % (11.5-14.5); Segmented Neutrophils % 66.7 %
[2019-10-25] MEDS ORDERED: Naloxone 0.4 MG/ML INJ IVP PRN (12:53)
[2019-10-25] MEDS ORDERED: Ondansetron 4 MG/2 ML VIAL IVP PRN (12:53)
[2019-10-25 13:24] LABS: Magnesium 2.1 mg/dL (1.6-2.6)
[2019-10-25] MEDS: Ipratropium/Albuterol Neb 3 ML IH SCH ×2 (16:19→21:57)
[2019-10-25] MEDS: *HR* Heparin 5,000 UNIT/ML VIAL SQ SCH (17:20)
[2019-10-25] MEDS: Loratadine 10 MG TABLET PO SCH (17:20)
[2019-10-25] MEDS ORDERED: Acetaminophen 325 MG TABLET PO ONE (23:50)
[2019-10-26] MEDS: Ipratropium/Albuterol Neb 3 ML IH SCH ×4 (03:16→22:43)
[2019-10-26 03:47] LABS: Basophils % 0.3 %; Eosinophils % 0.1 %; Hematocrit 39.3 % (35.3-44.9); Immature Granulocytes % 0.3 % (0-4); Lymphocytes # 1.4 K/mcL (0.6-4.6); Lymphocytes % 20.1 %; Mean Corpuscular HGB Conc 32.3 g/dL (31.6-35.5); Mean Corpuscular Hemoglobin 32.2 pg (28.0-33.3); Mean Corpuscular Volume 99.5 fL (83.0-100.0); Monocytes # 0.9 K/mcL (0.0-1.3); Monocytes % 13.7 %; Neutrophils # 4.4 K/mcL (1.6-8.9); Platelet Count 204 K/mcL (140-400); Red Blood Count 3.95 M/mcL (3.82-4.97); Red Cell Distribution Width 12.9 % (11.5-14.5); Segmented Neutrophils % 65.5 %; White Blood Count 6.8 K/mcL (4.3-11.1)
[2019-10-26 03:50] LABS: Alanine Aminotransferase 11 Units/L (7-52); Albumin/Globulin Ratio 1.7 (1.1-2.2); Alkaline Phosphatase 56 Units/L (34-104); Aspartate Amino Transferase 18 Units/L (13-39); BUN/Creatinine Ratio 25 (6-26); Bilirubin,Total 0.2 mg/dL (0.3-1.0); Blood Urea Nitrogen 14 mg/dL (6-20); Calcium 9.3 mg/dL (8.6-10.3); Carbon Dioxide 29 mEq/L (23-29); Chloride 103 mEq/L (98-107); Globulin 2.4 g/dL (2.4-3.5); Glucose 96 mg/dL (70-105); Osmolality,Calculated 288 (280-300); Potassium 4.3 mEq/L (3.5-5.1); Sodium 139 mEq/L (136-145); Total Protein 6.4 g/dL (6.4-8.9); eGFR For African Americans > 60 (> 60); eGFR For Non-African Americans > 60 (> 60)
[2019-10-26 04:07] LABS: Hemoglobin 12.7 g/dL (11.5-15.4)
[2019-10-26] MEDS: *HR* Heparin 5,000 UNIT/ML VIAL SQ SCH ×2 (05:09→17:31)
[2019-10-26] MEDS: Nicotine 14 MG PATCH.TD24 TD SCH (08:45)
[2019-10-26] MEDS: predniSONE 20 MG TABLET PO SCH (08:45)
[2019-10-26] MEDS: Azithromycin 250 MG TABLET PO SCH (08:45)
[2019-10-26] MEDS: Loratadine 10 MG TABLET PO SCH (08:45)
[2019-10-26] MEDS ORDERED: Azithromycin 500 MG in D5% in Water 250 ML IVPB SCH (09:00)
[2019-10-26] MEDS ORDERED: clonazePAM 0.5 MG TABLET PO PRN (10:18)
[2019-10-26] MEDS ORDERED: Acetylcysteine 10% 2 ML INHSOL IH SCH (10:30)
[2019-10-26] MEDS: Benzonatate 100 MG CAPSULE PO PRN (11:14)
[2019-10-26] MEDS: Acetylcysteine 10% 2 ML INHSOL IH SCH ×2 (15:16→22:43)
[2019-10-27] MEDS: Benzonatate 100 MG CAPSULE PO PRN ×2 (01:24→08:07)
[2019-10-27] MEDS: Acetylcysteine 10% 2 ML INHSOL IH SCH (04:41)
[2019-10-27] MEDS: Ipratropium/Albuterol Neb 3 ML IH SCH ×4 (04:41→22:47)
[2019-10-27] MEDS: *HR* Heparin 5,000 UNIT/ML VIAL SQ SCH ×2 (05:26→16:51)
[2019-10-27] MEDS: Azithromycin 250 MG TABLET PO SCH (08:07)
[2019-10-27] MEDS: Loratadine 10 MG TABLET PO SCH (08:07)
[2019-10-27] MEDS: predniSONE 20 MG TABLET PO SCH (08:07)
[2019-10-27] MEDS: Nicotine 14 MG PATCH.TD24 TD SCH (08:08)
[2019-10-28] MEDS: Ipratropium/Albuterol Neb 3 ML IH SCH ×2 (03:38→10:41)
[2019-10-28] MEDS: *HR* Heparin 5,000 UNIT/ML VIAL SQ SCH (05:40)
[2019-10-28 06:21] VITALS: BP 109/71
[2019-10-28] MEDS: Azithromycin 250 MG TABLET PO SCH (09:18)
[2019-10-28] MEDS: Nicotine 14 MG PATCH.TD24 TD SCH (09:18)
[2019-10-28] MEDS: Loratadine 10 MG TABLET PO SCH (09:19)
[2019-10-28] MEDS: predniSONE 20 MG TABLET PO SCH (09:19)
== END 2019-10-28 11:46 | disposition home or self-care (01) ==
LOC: EMEROOARM 08:25 → 2ANU 08:25 → SUATTDRO 11:41 → 2ANU 12:21
PROVIDERS: ADMIT Family Medicine; ATTEND Student in an Organized Health Care Education/Training Program

== ENCOUNTER 2022-05-20 09:48 | Observation (INO) ==
[2022-05-20 11:03] LABS: Basophils # 0.1 K/mcL (0.0-0.2); Basophils % 0.8 %; Eosinophils # 0.1 K/mcL (0.0-0.6); Hematocrit 41.6 % (35.3-44.9); Hemoglobin 13.7 g/dL (11.5-15.4); Immature Granulocytes % 0.2 % (0-4); Lymphocytes # 2.1 K/mcL (0.6-4.6); Lymphocytes % 34.3 %; Mean Corpuscular HGB Conc 32.9 g/dL (31.6-35.5); Mean Corpuscular Hemoglobin 30.9 pg (28.0-33.3); Mean Corpuscular Volume 93.9 fL (83.0-100.0); Mean Platelet Volume 9.4 fL (9.4-12.4); Monocytes # 0.5 K/mcL (0.0-1.3); Monocytes % 8.9 %; Neutrophils # 3.3 K/mcL (1.6-8.9); Platelet Count 281 K/mcL (140-400); Red Blood Count 4.43 M/mcL (3.82-4.97); Red Cell Distribution Width 13.4 % (11.5-14.5); Segmented Neutrophils % 54.8 %
[2022-05-20] MEDS ORDERED: Iopamidol - 370 500 ML MLS IVP ONE (11:31)
[2022-05-20] MEDS ORDERED: Aspirin 81 MG TAB.CHEW PO ONE (11:31)
[2022-05-20 12:49] LABS: Alanine Aminotransferase 10 Units/L (7-52); Albumin 4.1 g/dL (3.5-5.7); Albumin/Globulin Ratio 1.7 (1.1-2.2); Alkaline Phosphatase 60 Units/L (34-104); Aspartate Amino Transferase 16 Units/L (13-39); BUN/Creatinine Ratio 11 (6-26); Bilirubin,Direct 0.1 mg/dL (0.0-0.2); Bilirubin,Indirect 0.3 mg/dL (0.0-1.0); Bilirubin,Total 0.4 mg/dL (0.3-1.0); Blood Urea Nitrogen 8 mg/dL (6-20); Calcium 9.4 mg/dL (8.6-10.3); Carbon Dioxide 31 mEq/L (23-29); Chloride 101 mEq/L (98-107); Globulin 2.4 g/dL (2.4-3.5); Glucose 85 mg/dL (70-105); Lipase 15 Units/L (11-82); Osmolality,Calculated 280 (280-300); Potassium 4.1 mEq/L (3.5-5.1); Sodium 136 mEq/L (136-145); Total Protein 6.5 g/dL (6.4-8.9); Troponin I < 0.03 ng/mL (< 0.04); eGFR For African Americans > 60 (> 60); eGFR For Non-African Americans > 60 (> 60)
[2022-05-20] MEDS ORDERED: Perflutren Lipid Microsphere 1.3 ML in 0.9 % Sodium Chloride 8.7 ML IVP PRN (17:10)
[2022-05-20] MEDS: *HR* Heparin 5,000 UNIT/ML VIAL SQ SCH ×2 (18:05→21:00)
[2022-05-20 19:15] LABS: Adenovirus Not Detected (Not Detect); Bordetella Pertussis Not Detected (Not Detect); Chlamydophila pneumoniae Not Detected (Not Detect); Coronavirus 229E Not Detected (Not Detect); Coronavirus HKU1 Not Detected (Not Detect); Coronavirus NL63 Not Detected (Not Detect); Coronavirus OC43 Not Detected (Not Detect); Human Metapneumovirus Not Detected (Not Detect); Human Rhinovirus/Enterovirus Not Detected (Not Detect); Influenza A Subtype 2009 H1 Not Detected (Not Detect); Influenza B Not Detected (Not Detect); Mycoplasma pneumoniae Not Detected (Not Detect); Parainfluenza Virus 1 Not Detected (Not Detect); Parainfluenza Virus 2 Not Detected (Not Detect); Parainfluenza Virus 3 Not Detected (Not Detect); Parainfluenza Virus 4 Not Detected (Not Detect); Respiratory Syncytial Virus Not Detected (Not Detect); SARS-CoV-2 Not Detected (Not Detect)
[2022-05-21] MEDS: *HR* Heparin 5,000 UNIT/ML VIAL SQ SCH ×3 (06:22→21:47)
[2022-05-21] MEDS ORDERED: clonazePAM 0.5 MG TABLET PO PRN (08:34)
[2022-05-21] MEDS: Acetaminophen 325 MG TABLET PO PRN ×2 (09:19→21:49)
[2022-05-21] MEDS: Aspirin Enteric Coated 81 MG Tablet PO SCH (11:36)
[2022-05-22] MEDS: *HR* Heparin 5,000 UNIT/ML VIAL SQ SCH ×3 (06:07→21:20)
[2022-05-22] MEDS ORDERED: Regadenoson 0.4 MG/5 ML SYRINGE IVP ONE (06:50)
[2022-05-22 06:57] LABS: Hematocrit 45.6 % (35.3-44.9); Hemoglobin 14.4 g/dL (11.5-15.4); Mean Corpuscular HGB Conc 31.6 g/dL (31.6-35.5); Mean Corpuscular Hemoglobin 30.4 pg (28.0-33.3); Mean Corpuscular Volume 96.4 fL (83.0-100.0); Mean Platelet Volume 9.3 fL (9.4-12.4); Platelet Count 273 K/mcL (140-400); Red Blood Count 4.73 M/mcL (3.82-4.97); Red Cell Distribution Width 13.2 % (11.5-14.5); White Blood Count 5.2 K/mcL (4.3-11.1)
[2022-05-22 07:17] LABS: BUN/Creatinine Ratio 26 (6-26); Blood Urea Nitrogen 16 mg/dL (6-20); Calcium 9.6 mg/dL (8.6-10.3); Carbon Dioxide 29 mEq/L (23-29); Chloride 103 mEq/L (98-107); Glucose 94 mg/dL (70-105); Magnesium 1.9 mg/dL (1.6-2.6); Osmolality,Calculated 285 (280-300); Phosphorous 3.5 mg/dL (2.7-4.5); Potassium 4.5 mEq/L (3.5-5.1); Sodium 137 mEq/L (136-145); eGFR For African Americans > 60 (> 60); eGFR For Non-African Americans > 60 (> 60)
[2022-05-22] MEDS: Aspirin Enteric Coated 81 MG Tablet PO SCH (10:13)
[2022-05-22] MEDS: Acetaminophen 325 MG TABLET PO PRN (21:20)
[2022-05-23 02:39] LABS: Hematocrit 45.3 % (35.3-44.9); Hemoglobin 14.6 g/dL (11.5-15.4); Mean Corpuscular HGB Conc 32.2 g/dL (31.6-35.5); Mean Corpuscular Hemoglobin 30.6 pg (28.0-33.3); Mean Platelet Volume 9.5 fL (9.4-12.4); Platelet Count 268 K/mcL (140-400); Red Blood Count 4.77 M/mcL (3.82-4.97); Red Cell Distribution Width 13.1 % (11.5-14.5); White Blood Count 6.3 K/mcL (4.3-11.1)
[2022-05-23 03:00] LABS: BUN/Creatinine Ratio 20 (6-26); Blood Urea Nitrogen 15 mg/dL (6-20); Calcium 10.1 mg/dL (8.6-10.3); Carbon Dioxide 30 mEq/L (23-29); Chloride 102 mEq/L (98-107); Glucose 97 mg/dL (70-105); Magnesium 1.9 mg/dL (1.6-2.6); Osmolality,Calculated 285 (280-300); Phosphorous 4.2 mg/dL (2.7-4.5); Potassium 4.4 mEq/L (3.5-5.1); Sodium 137 mEq/L (136-145); eGFR For African Americans > 60 (> 60); eGFR For Non-African Americans > 60 (> 60)
[2022-05-23] MEDS: *HR* Heparin 5,000 UNIT/ML VIAL SQ SCH ×3 (05:57→21:14)
[2022-05-23] MEDS: Aspirin Enteric Coated 81 MG Tablet PO SCH (09:19)
[2022-05-23] MEDS: Acetaminophen 325 MG TABLET PO PRN ×2 (09:21→21:10)
[2022-05-24] MEDS: *HR* Heparin 5,000 UNIT/ML VIAL SQ SCH ×2 (05:13→13:00)
[2022-05-24 07:15] LABS: Hematocrit 46.6 % (35.3-44.9); Hemoglobin 14.9 g/dL (11.5-15.4); Mean Corpuscular Hemoglobin 30.5 pg (28.0-33.3); Mean Corpuscular Volume 95.3 fL (83.0-100.0); Mean Platelet Volume 9.5 fL (9.4-12.4); Platelet Count 269 K/mcL (140-400); Red Blood Count 4.89 M/mcL (3.82-4.97); Red Cell Distribution Width 13.2 % (11.5-14.5); White Blood Count 5.2 K/mcL (4.3-11.1)
[2022-05-24 07:26] LABS: Activated Partial Thrombo Time 36.4 Seconds (26.0-36.0)
[2022-05-24] MEDS: Aspirin Enteric Coated 81 MG Tablet PO SCH (08:13)
[2022-05-24 09:00] LABS: BUN/Creatinine Ratio 23 (6-26); Blood Urea Nitrogen 17 mg/dL (6-20); Calcium 10.2 mg/dL (8.6-10.3); Carbon Dioxide 35 mEq/L (23-29); Chloride 100 mEq/L (98-107); Glucose 83 mg/dL (70-105); Osmolality,Calculated 289 (280-300); Potassium 4.8 mEq/L (3.5-5.1); Sodium 139 mEq/L (136-145); eGFR For African Americans > 60 (> 60); eGFR For Non-African Americans > 60 (> 60)
[2022-05-24] MEDS ORDERED: Heparin 1,000 UNITS/500 mL 500 ML ONE (09:35)
[2022-05-24] MEDS ORDERED: Iopamidol - 370 200 ML INFUS..BTL ONE (09:35)
[2022-05-24] MEDS ORDERED: 0.9 % Sodium Chloride 2,000 ML ONE (09:35)
[2022-05-24] MEDS ORDERED: *HR* Heparin 10,000 UNIT/10 ML VIAL ONE (09:35)
[2022-05-24] MEDS ORDERED: Nitroglycerin 1,000 MCG/5 ML VIAL IV ONE (09:35)
[2022-05-24] MEDS ORDERED: *HR* FentaNYL (PF) 100 MCG/2 ML VIAL ONE (10:39)
[2022-05-24] MEDS ORDERED: *HR* Midazolam HCl 2 MG/2 ML VIAL ONE (10:40)
[2022-05-24] MEDS ORDERED: 0.9 % Sodium Chloride 1,000 ML IVC SCH (11:45)
[2022-05-24 11:48] VITALS: TEMP 97.8
[2022-05-24 14:31] VITALS: O2SAT 94
[2022-05-24 14:55] VITALS: BP 99/66; PULSE 64
== END 2022-05-24 15:32 | disposition home or self-care (01) ==
LOC: EMEROOARM 09:48 → 3BNU 09:48 → SUATTDRO 14:59 → 3BNU 15:35
PROVIDERS: ADMIT Family Medicine; ATTEND Student in an Organized Health Care Education/Training Program